=== PATIENT | male | born 1975 | race Caucasian/White ===

== ENCOUNTER 2016-11-28 09:34 | Outpatient (CLI) ==
--- NOTE | 2016-11-28 10:18 | MAMMO ---
EXAM: Digital bilateral diagnostic mammogram HISTORY: Minimal nodularity posterior to the left nipple in a male on multiple medications COMPARISON: None FINDINGS: Two views of both breasts were performed with nipple markers. There is minimal irregular asymmetric soft tissue density posterior to the left nipple. No abnormal calcification or definiti ve nodule is identified. There is minimal soft tissue posterior to the right nipple. IMPRESSION: Mild asymmetric parenchymal density posterior to the left nipple suggestive of gynecoma stia. RECOMMENDATION: No follow-up is recommended, but if symptoms persist, density increases in size or clinical follow-u p is indicated, repeat/follow-up evaluation may be obtained. BIRADS category II: Benign findings
== END 2016-11-28 09:35 | disposition home or self-care (01) ==
LOC: RAD 09:34
PROVIDERS: ATTEND Surgery Surgical Oncology
DX: N64.4 Mastodynia (principal)

== ENCOUNTER 2017-02-09 11:52 | Outpatient (CLI) ==
[2017-02-09 12:07] LABS: BASOPHILS # (AUTO) 0.1 K/uL (0-0.2); BASOPHILS % (AUTO) 0.7 % (0.0-3.0); EOSINOPHILS # (AUTO) 0.3 K/ul (0.0-0.7); HEMATOCRIT 46.4 % (42.0-52.0); HEMOGLOBIN 15.3 g/dl (14.0-18.0); IMMATURE GRANULOCYTE % (AUTO) 1.3 % (0.0-5.0); LYMPHOCYTES # (AUTO) 1.5 K/uL (0.60-3.4); LYMPHOCYTES % (AUTO) 14.5 (10.0-50.0); MEAN CORPUSCULAR HEMOGLOBIN 27.3 pg (27.0-31.0); MEAN CORPUSCULAR VOLUME 82.7 fl (80.0-94.0); MONOCYTES # (AUTO) 0.5 K/uL (0.4-2.0); MONOCYTES % (AUTO) 4.9 (0-10); NEUTROPHILS # (AUTO) 7.8 K/ul (2.0-6.9); NEUTROPHILS % (AUTO) 75.6; PLATELET COUNT 194 10^3/uL (140-440); RED BLOOD COUNT 5.61 10^6/ul (4.70-6.10); WHITE BLOOD COUNT 10.32 K/ul (4.2-10.2)
[2017-02-09 12:33] LABS: ALBUMIN 3.7 g/dL (3.4-5.0); ALBUMIN/GLOBULIN RATIO 1.03; ANION GAP 12.7; BILIRUBIN,TOTAL 0.3 mg/dL (0.00-1.20); BUN/CREATININE RATIO 14.44; CALCIUM 9.3 mg/dL (8.2-10.2); CREATININE 0.9 mg/dL (0.60-1.10); POTASSIUM 3.7 mmol/L (3.5-5.1); TOTAL PROTEIN 7.3 g/dL (6.4-8.2)
== END 2017-02-09 11:53 | disposition home or self-care (01) ==
LOC: LAB 11:52
PROVIDERS: ATTEND Internal Medicine
DX: R00.1 Bradycardia, unspecified (principal)
CPT/HCPCS: 36415; 80053; 85025; 93005; 93010

== ENCOUNTER 2017-02-25 14:00 | Outpatient (RCR) ==
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
--- NOTE | 2017-02-23 16:26 | RS.OTDNOTE ---
Subjective Date of Note: 02/23/17 Visit #: 2 Date of Evaluation: 02/18/17 Payer Source: MEDICARE Date of Onset/Injury/Change in Status: 10/20/16 Surgery Performed?: No Treatment Diagnosis: Left elbow tendonitis Treatment Side (optional): Left *Precautions: Pain pushing himself up, gripping, reaching. Prior Level of Function.....Patient was independent with: ADL's, Self Care, Work /Vocation, Caregiving, Ambulation/Mobility, Community Integration/Access History of Condition/Mechanism of Injury: Patient reports he started having pain in October of this year and it slowly has progressed. Patient is in a wheelchair and has been staying in the bed due to the sore on his coccyx area. Now his LUE elbow is having increased pain. Current Complaints/Gains: Pt states he did not tolerate the ice massage well and had increased c/o pain following Pain Assessment - Pain Description Pain Description: Burning, Tightness, Sharp, Aching Pain Location: Left elbow. hands are numb. Pain Description: sore, tender, burn, tightness Modalities - Treatment Modality: Ultrasound Parameters/Method Applied: 1.5w/cm2 x 10 mins Treatment Area: lateral epicondyle Patient Position: Sitting - Hot Pack/Cryotherapy Treatment: Cryotherapy (CP applied x 10 mins following tx) Interventions - Exercise/Activities Exercise/Activities/Manual Therapy: Manual therapy/trigger point along with ed on self stretching of elbow/wrist into flexion/extension. 2# hand weight utilized along with medium strength hand gripper. - Charges Total Direct Minutes: 35 Total Treatment Time: 50 Procedures billed for this date of service:: [facility] CP Assessment Patient Education: Education of diagnosis, Body/Joint mechanics, Home Exercise Program, Home Safety, Activity Modification, Education of Plan of Care Patient demonstrates compliance with HEP?: Yes Short Term Goals Goal #1: Pt to decrease his LUE elbow pain to 0-2 pain. Goal to be met by: 03/04/17 Progress towards goal: Progressing Goal #2: Pt to be independent with Home exercise program Goal to be met by: 03/04/17 Progress towards goal: Progressing Goal #3: Pt to increase strength of LUE director financial analysis to 73#. Goal to be met by: 03/11/17 Progress towards goal: Progressing Goal #4: Pt to increase strength of LUE to 4+/5 Goal to be met by: 03/11/17 Progress towards goal: Progressing Senior Care Goals Goal #1: Patient's pain to decrease to 0/10. Goal to be met by: 03/18/17 Progress towards goal: Progressing Goal #2: Pt to be independent with Home Exercise program. Goal to be met by: 03/18/17 Progress towards goal: Progressing Goal #3: Pt to increase LUE mass director financial analysis to 80# Goal to be met by: 04/01/17 Progress towards goal: Progressing Goal #4: Pt to increase strength of LUE to 5/5. Goal to be met by: 04/01/17 Progress towards goal: Progressing Plan PLAN OF CARE EXPIRES ON:: 04/01/17 ORDER # VISITS AND/OR THROUGH DATE: April 01, 2017 PLAN: Progress Exercises Frequency: 3 X week Duration: 4 weeks
--- NOTE | 2017-02-24 15:01 | RS.OTDNOTE ---
Subjective Date of Note: 02/24/17 Visit #: 3 Date of Evaluation: 02/18/17 Payer Source: MEDICARE Date of Onset/Injury/Change in Status: 10/20/16 Surgery Performed?: No Treatment Diagnosis: Left elbow tendonitis Treatment Side (optional): Left *Precautions: Pain pushing himself up, gripping, reaching. Prior Level of Function.....Patient was independent with: ADL's, Self Care, Work /Vocation, Caregiving, Ambulation/Mobility, Community Integration/Access History of Condition/Mechanism of Injury: Patient reports he started having pain in October of this year and it slowly has progressed. Patient is in a wheelchair and has been staying in the bed due to the sore on his coccyx area. Now his LUE elbow is having increased pain. Current Complaints/Gains: Pt states he did apply ice pack a second time yesterday for approx 20 mins. States no change in pain. States he has tried UE /elbow protectors before but does not have one now, ussan elbow protector given to pt with instructions for use. Pain Assessment - Pain Description Pain Description: Burning, Tightness, Sharp, Aching Pain Location: Left elbow. hands are numb. Pain Description: sore, tender, burn, tightness Current Pain Intensity: 3-4 Worst Pain Intensity: 6-7 Modalities - Treatment Modality: Ultrasound Parameters/Method Applied: .04w/cm2 x 10 mins, pulsed Treatment Area: elbow Patient Position: Sitting - Hot Pack/Cryotherapy Treatment: Cryotherapy (x 10 mins) Interventions - Exercise/Activities Exercise/Activities/Manual Therapy: Manual therapy/trigger point along with ed on self stretching of elbow/wrist into flexion/extension. 2# hand weight utilized along with medium strength hand gripper. Pt also performed and ed on ISO el ex's. - Charges Total Direct Minutes: 45 Total Treatment Time: 55 Procedures billed for this date of service:: EX MT CP Assessment Patient Education: Education of diagnosis, Body/Joint mechanics, Home Exercise Program, Home Safety, Activity Modification, Education of Plan of Care Patient demonstrates compliance with HEP?: Yes Short Term Goals Goal #1: Pt to decrease his LUE elbow pain to 0-2 pain. Goal to be met by: 03/04/17 Progress towards goal: Progressing Goal #2: Pt to be independent with Home exercise program Goal to be met by: 03/04/17 Progress towards goal: Progressing Goal #3: Pt to increase strength of LUE service parts coordinator to 73#. Goal to be met by: 03/11/17 Progress towards goal: Progressing Goal #4: Pt to increase strength of LUE to 4+/5 Goal to be met by: 03/11/17 Progress towards goal: Progressing [employer] Goals Goal #1: Patient's pain to decrease to 0/10. Goal to be met by: 03/18/17 Progress towards goal: Progressing Goal #2: Pt to be independent with Home Exercise program. Goal to be met by: 03/18/17 Progress towards goal: Progressing Goal #3: Pt to increase LUE mass service parts coordinator to 80# Goal to be met by: 04/01/17 Progress towards goal: Progressing Goal #4: Pt to increase strength of LUE to 5/5. Goal to be met by: 04/01/17 Progress towards goal: Progressing Plan PLAN OF CARE EXPIRES ON:: 04/01/17 ORDER # VISITS AND/OR THROUGH DATE: April 01, 2017 PLAN: Continue Plan of Care Frequency: 3 X week Duration: 4 weeks
--- NOTE | 2017-02-25 16:32 | RS.OTDNOTE ---
Subjective Date of Note: 02/25/17 Visit #: 4 Date of Evaluation: 02/18/17 Payer Source: MEDICARE Date of Onset/Injury/Change in Status: 10/20/16 Surgery Performed?: No Treatment Diagnosis: Left elbow tendonitis Treatment Side (optional): Left *Precautions: Pain pushing himself up, gripping, reaching. Prior Level of Function.....Patient was independent with: ADL's, Self Care, Work /Vocation, Caregiving, Ambulation/Mobility, Community Integration/Access History of Condition/Mechanism of Injury: Patient reports he started having pain in October of this year and it slowly has progressed. Patient is in a wheelchair and has been staying in the bed due to the sore on his coccyx area. Now his LUE elbow is having increased pain. Current Complaints/Gains: Pt states he can stand and has in the past taken steps with his B LE braces on. Pain Assessment - Pain Description Pain Description: Burning, Tightness, Sharp, Aching Pain Location: Left elbow. hands are numb. Pain Description: sore, tender, burn, tightness Modalities - Treatment Modality: Ultrasound Parameters/Method Applied: .04w/cm2 x 10 mins Patient Position: Sitting Interventions - Exercise/Activities Exercise/Activities/Manual Therapy: Manual therapy/trigger point along with ed on self stretching of elbow/wrist into flexion/extension. 5# hand weight utilized along with medium strength hand gripper and 5# abdoulaye bar/green t-band TE's, 15/2. Restor x 5 mins. - Charges Total Direct Minutes: 50 Total Treatment Time: 50 Procedures billed for this date of service:: US EX2 Assessment Patient Education: Education of diagnosis, Body/Joint mechanics, Home Exercise Program, Home Safety, Activity Modification, Education of Plan of Care Patient demonstrates compliance with HEP?: Yes Short Term Goals Goal #1: Pt to decrease his LUE elbow pain to 0-2 pain. Goal to be met by: 03/04/17 Progress towards goal: Progressing Goal #2: Pt to be independent with Home exercise program Goal to be met by: 03/04/17 Progress towards goal: Progressing Goal #3: Pt to increase strength of LUE carbon printer to 73#. 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 Goal to be met by: 03/18/17 Progress towards goal: Progressing Goal #2: Pt to be independent with Home Exercise program. Goal to be met by: 03/18/17 Progress towards goal: Progressing Goal #3: Pt to increase LUE mass carbon printer to 80# Goal to be met by: 04/01/17 Progress towards goal: Progressing Goal #4: Pt to increase strength of LUE to 5/5. Goal to be met by: 04/01/17 Progress towards goal: Progressing Plan PLAN OF CARE EXPIRES ON:: 04/01/17 ORDER # VISITS AND/OR THROUGH DATE: April 01, 2017 PLAN: Progress Exercises Frequency: 3 X week Duration: 4 weeks
--- NOTE | 2017-04-13 15:24 | RS.OTQKDC ---
OT Discharge Date of Discharge: 02/25/17 Number of Visits: 4 Reason for Discharge: Pt receiving Home health services secondary to open sores. Will return to Outpatient OT following Home health services. G Codes: Carry, moving, and handling Goal CH, discharge CK
== END 2017-03-18 ==
PROVIDERS: ATTEND Internal Medicine
DX: M77.8 Other enthesopathies, not elsewhere classified (principal)

== ENCOUNTER 2018-04-21 13:27 | Outpatient (CLI) | payer OTHER | END 2018-04-21 13:28 | disposition home or self-care (01) | LOC: NONPT 13:27 | PROVIDERS: ATTEND Internal Medicine Infectious Disease | DX: T81.4XXA Infection following a procedure, initial encounter (principal) | CPT/HCPCS: 80053; 85027; 85651; 86140 ==

== ENCOUNTER 2018-05-03 15:09 | Outpatient (CLI) | END 2018-05-03 15:10 | disposition home or self-care (01) | LOC: NONPT 15:09 | PROVIDERS: ATTEND Internal Medicine Infectious Disease | DX: T81.4XXA Infection following a procedure, initial encounter (principal) | CPT/HCPCS: 80053; 85027; 85651; 86140 ==

== ENCOUNTER 2018-05-18 08:52 | Outpatient (CLI) ==
--- NOTE | 2018-05-18 12:57 | MRI ---
EXAM: MRI of the pelvis without then with intravenous contrast COMPARISON: MRI of the pelvis 04/14/2016. Bone scan 06/25/2016. HISTORY: Left buttock/hip infection. Osteomyelitis. TECHNIQUE: Multiplanar MR images of the pelvis/bilateral hips were acquired using a 1.2 Татьяна magnet before and after intravenous administration of a Gadolinium based contrast agent. Several sequences are mildly limited by patient motion artifact. FINDINGS: No recent radiographs the pelvis/hips are available for comparison and radiographic correl ation is recommended. There is a deep decubitus ulcer inferiorly in the left gluteal region with gas extending to the deep soft tissues at the level of the ischial tuberosity remnant. Subcutaneous edema enhancement adjacent region related to cellulitis with enhancing inflammatory phlegmon/granulation tissue along the deep soft tissue tract extending to the level of the ischial tuberosity. 2.7 x 0.7 cm T2 hyperintense col lection within the soft tissues immediately overlying the ischial tuberosity with adjacent gas sugges ting a small abscess. There is loss of bone at the level of the left ischial tuberosity likely in pa rt related to previous surgery at that site though with marrow edema/enhancement. Cortical irregular ity involving the ischial tuberosity remnant consistent with ongoing/acute osteomyelitis. Marrow precious ma enhance extend through the posterior portion of the left acetabulum. Adjacent myositis. There is h eterogeneous signal involving the bone marrow suggesting nonspecific red marrow reconversion/hyperpla nikki. Marked osteoarthrosis involving hips bilaterally. Moderate right hip and small left hip effusi ons with synovial enhancement more pronounced on the right. No evidence of acute osteomyelitis at th e level of the right hip. Degenerative spurring at the sacroiliac joints without evidence of active sacroiliitis or ankylosis. Trace left-sided greater trochanteric bursitis. Discontinuity of the left common hamstring tendon at its ischial tuberosity attachment as previously noted. Tendinosis and chronic tear of the right common hamstring tendon. Muscle atrophy. Degenerat javon disc and joint disease involving the lower lumbar spine. There is a suprapubic catheter in place with gas and fluid within the urinary bladder. Incidental no te of seminal vesicles cysts. There are sub-centimeter inguinal and external iliac chain lymph nodes which are nonspecific and may be reactive in nature. 1.0 x 0.7 x 0.6 cm ovoid T2 hyperintense/T1 hy pointense lesion along the free margin of the left piriformis muscle, best seen on image 16 of the ax ial T1-weighted images which may represent a prominent lymph node. IMPRESSION: 1. Deep soft tissue ulcer inferiorly in the left gluteal region with soft tissue gas extending to th e level of the underlying ischial tuberosity remnant. Underlying inflammatory phlegmon/granulation t issue and small abscess. There is evidence of ongoing osteomyelitis at the level of the left ischial tuberosity remnant as described. 2. Marked degenerative changes of the hips bilaterally. Moderate right hip and small left hip effus ions with more pronounced synovitis on the right. This is nonspecific and joint aspiration could be considered if there is specific clinical concern for a septic joint at that level. No evidence of re active marrow edema or acute osteomyelitis involving the right hip. 3. Degenerative changes of the sacroiliac joints and lower lumbar spine. Marrow heterogeneity sugge sting nonspecific red marrow reconversion/hyperplasia. 4. Discontinuity of the hamstring tendons as described. 5. Trace left-sided greater trochanteric bursitis. 6. Sub centimeter mildly enlarged lymph nodes as described which are nonspecific and may be reactive in nature. 7. Suprapubic catheter.
== END 2018-05-18 08:53 | disposition home or self-care (01) ==
LOC: RAD 08:52
PROVIDERS: ATTEND Internal Medicine Infectious Disease
DX: M86.28 Subacute osteomyelitis, other site (principal)

== ENCOUNTER 2018-06-06 05:37 | Inpatient (IN) | payer OTHER ==
[2018-06-06] MEDS ORDERED: TORADOL IVP STA ×2 (06:01→13:39)
[2018-06-06] MEDS ORDERED: LEVAQUIN 500 MG in PREMIX 100 ML D5W 1 BAG IV STA (06:24)
[2018-06-06] MEDS ORDERED: DILAUDID 0.5 MG/0.5 ML SYRINGE IM STA (06:24)
[2018-06-06] MEDS ORDERED: DILAUDID 0.5 MG/0.5 ML SYRINGE IVP STA (06:27)
[2018-06-06] MEDS ORDERED: SODIUM CHLORIDE 1,000 ML IV STA (06:31)
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
[2018-06-06] MEDS ORDERED: TORADOL ONE (06:32)
[2018-06-06] MEDS ORDERED: LEVAQUIN 100 ML IV ONE (06:33)
[2018-06-06] MEDS ORDERED: ZOFRAN 4 MG/2 ML IVP STA (06:34)
[2018-06-06] MEDS ORDERED: ZOSYN 4.5 GM 4.5 GM in SODIUM CHLORIDE 100 ML IV STA (07:06)
[2018-06-06] MEDS ORDERED: SOLU-MEDROL 125 MG IVP STA (07:07)
--- NOTE | 2018-06-06 08:05 | CT ---
Exam: CT of the abdomen and pelvis without contrast History: Fever with right flank pain Technique: [address] of the abdomen and pelvis without intravascular contrast FINDINGS: Prior cholecystectomy. No significant liver abnormality. The adrenals, pancreas and spleen are unremarkable. The stomach and hiatus are unremarkable.Kidneys and proximal collecting system are unremarkable. The appendix is not seen. Atherosclerotic calcification of the aorta without aneurysm . Suprapubic catheter placed. Nondistended urinary bladder. Perivesicular perivesicular inflammation is questionable. Normal pelvic colonic loops with moderate stool retention. No acute findings of th e skeleton. Impression: 1. Perivesicular inflammation is questionable. Correlate for evidence of cystitis. 2. No bowel or urinary obstruction 3. Suprapubic catheter in place
[2018-06-06 09:43] VITALS: BMI 19.1
--- NOTE | 2018-06-06 12:41 | DI ---
EXAM: Chest, one-view HISTORY: Suspected urosepsis COMPARISON: 02/27/2016 TECHNIQUE: Single view of the chest was performed FINDINGS: The lungs are clear. There is no pleural effusion or pneumothorax. The heart is normal i n size. The mediastinal contour is normal. There are no acute abnormalities of the bones. Cervical and thoracic spinal fusion hardware. IMPRESSION: No acute cardiopulmonary process.
[2018-06-06] MEDS ORDERED: DULCOLAX RC PRN (16:40)
[2018-06-06] MEDS ORDERED: IBUPROFEN 600 MG PO PRN (16:40)
[2018-06-06] MEDS ORDERED: BACLOFEN ONE ×2 (16:44→21:38)
[2018-06-06] MEDS: DEXTROSE 5%-1/2NS IV SOLUTION 1,000 ML IV SCH (16:51)
[2018-06-06] MEDS: ZOSYN 4.5 GM 4.5 GM in SODIUM CHLORIDE 100 ML IV SCH (17:00)
[2018-06-06] MEDS: NON-FORMULARY MEDICATION (Baclofen [Baclofen] 20 MG) PO SCH ×2 (17:46→21:43)
[2018-06-06] MEDS ORDERED: LUBIPROSTONE 24 MCG PO SCH (21:00)
[2018-06-06] MEDS: TORADOL IVP SCH (21:43)
[2018-06-06] MEDS ORDERED: TYLENOL PO PRN (23:21)
[2018-06-07] MEDS: ZOSYN 4.5 GM 4.5 GM in SODIUM CHLORIDE 100 ML IV SCH ×4 (00:07→17:15)
[2018-06-07] MEDS: TORADOL IVP SCH ×3 (05:24→20:57)
[2018-06-07] MEDS: DEXTROSE 5%-1/2NS IV SOLUTION 1,000 ML IV SCH ×2 (05:24→20:29)
[2018-06-07] MEDS ORDERED: MOTRIN PO PRN (07:06)
[2018-06-07] MEDS ORDERED: DILAUDID 2 MG/ML SYRINGE IVP PRN (08:46)
[2018-06-07] MEDS ORDERED: NON-FORMULARY MEDICATION (Ascorbic Acid [Vitamin C] 1,000 MG) PO SCH (09:00)
[2018-06-07] MEDS ORDERED: DILAUDID 2 MG/ML SDV ONE (10:07)
[2018-06-07] MEDS: PROTONIX PO SCH (10:15)
[2018-06-07] MEDS: AMITIZA PO SCH ×2 (10:15→20:27)
[2018-06-07] MEDS: MACRODANTIN PO SCH (10:16)
[2018-06-07] MEDS: BACLOFEN PO SCH ×4 (10:16→20:28)
[2018-06-07] MEDS: VITAMIN C PO SCH (10:16)
--- NOTE | 2018-06-07 10:55 | PCM.PROG ---
Attending Provider: [facility]ENDING PROVIDER[facility] is seen with Tika Presley, Nurse Practitioner. DATE OF SERVICE: 06/07/18 SUBJECTIVE: This 43 year old WHITE/ M was hospitalized 06/06/18. The patient is lying in bed resting comfortably. He had pain through the night. He states Hydrocodone and Oxydodone are not helping. He uses medical marijuana at home. He has Stage 3 decubitus that has been present for over 6 years due to paraplegic status. REVIEW OF SYSTEMS: CONSTITUTIONAL: Weakness. No night sweats. No malaise, lethargy. No fever or chills. HEENT: Eyes: No visual changes. No eye pain. No eye discharge. ENT: No runny nose. No epistaxis. No sinus pain. No odynophagia. No congestion. RESPIRATORY: No cough, no congestion. No hemoptysis. No shortness of breath. CARDIOVASCULAR: No angina symptoms. No CHF symptoms. No atypical chest pain for CAD. No palpitations. No orthopnea.. GASTROINTESTINAL: No abdominal pain. No nausea or vomiting. No diarrhea or constipation. No hematemesis. No hematochezia. GENITOURINARY: Bladder pain. No urgency. No frequency. No dysuria. No hematuria. No obstructive symptoms. No discharge. No significant abnormal bleeding. MUSCULOSKELETAL: Back pain, neck pain. NEUROLOGICAL: Awake, alert, oriented to time, place and person. No headache. No neck pain. No syncope. No seizures. No dizziness. PSYCHIATRIC: Not anxious. No depression. No suicidal thoughts. No homicidal thoughts. SKIN: No rash. No lesions. No wounds. ENDOCRINE: No unexplained weight loss. No weight gain. HEMATOLOGIC/LYMPHATIC: No anemia. No purpura. No petechiae. No prolonged or excessive bleeding. No palpable lymph nodes. PHYSICAL EXAMINATION: GENERAL: The patient is awake, alert and oriented, lying/sitting in bed in no distress. VITAL SIGNS: Temperature 97.7 F, Pulse 64, Respiratory Rate 18, BP 94/50, Pulse Ox 99% HEENT: Head normocephalic, atraumatic. Eyes: Extraocular muscles are intact. Pupils are equal, round and reactive to light and accommodation. Ears: No lesions. Nose appeared normal. Throat: No exudate or erythema. NECK: Supple. No JVD, no carotid bruit. No lymphadenopathy or thyromegaly. LUNGS: Clear to auscultation. Percussion note normal. Chest symmetrical. HEART: S1, S2, no S3. No murmurs. No cyanosis or clubbing. No ascites. Pulses: Dorsalis pedis and posterior tibial pulses +1 to +2 both sides. ABDOMEN: Soft. Non-tender. Bowel sounds active. No CVA tenderness. No mass felt. EXTREMITIES: Paraplegia lower extremities. No edema. Full range of motion of all extremities, equal. NEUROLOGIC: No focal deficit. Cranial nerves II through XII are grossly intact. No headache, no double vision or headache. SKIN: Not dry. Intact. Turgor-normal. LYMPHATIC: No palpable lymph nodes/no lymphedema. MUSCULOSKELETAL: Normal joints with no swelling. Muscle tone is normal. LAB REVIEW: 06/06/18 06:30 06/06/18 06:30 ASSESSMENT: 1. Acute pyelonephritis/cystitis 2. Paraplegia wheelchair bound 3. Stage 3 decubitus on coccyx 4. Chronic back and neck pain 5. History of recurrent UTI PLAN: 1. Dr. Lira consult for decubitus 2. Dilaudid 2 mg q.4hr p.r.n. 3. Decrease IV fluids to 75 mL/hr Plan and coordination of the patient's care discussed in the presence of Email Production Specialist and nurse. CONDITION: Stable SCRIBED BY: Mamie VELEZ scribed while in presence of service performed by Dr. Rizzo/Tika Presley APRN on 06/07/18 ([id number])
[2018-06-07] MEDS: DILAUDID 2 MG/ML SDV IVP PRN (18:24)
[2018-06-08] MEDS: ZOSYN 4.5 GM 4.5 GM in SODIUM CHLORIDE 100 ML IV SCH ×2 (00:15→06:44)
[2018-06-08] MEDS: DILAUDID 2 MG/ML SDV IVP PRN ×3 (00:37→21:06)
[2018-06-08] MEDS: PROTONIX PO SCH (06:04)
[2018-06-08] MEDS: TORADOL IVP SCH ×3 (06:09→20:36)
[2018-06-08] MEDS: MACRODANTIN PO SCH (08:47)
[2018-06-08] MEDS: VITAMIN C PO SCH (08:47)
[2018-06-08] MEDS: AMITIZA PO SCH ×2 (08:47→21:20)
[2018-06-08] MEDS: BACLOFEN PO SCH ×3 (08:47→21:20)
[2018-06-08] MEDS: PRIMAXIN 500 MG in SODIUM CHLORIDE 100 ML IV SCH ×3 (08:48→17:00)
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
[2018-06-08] MEDS: DEXTROSE 5%-1/2NS IV SOLUTION 1,000 ML IV SCH (12:44)
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
--- NOTE | 2018-06-08 14:34 | PN ---
DATE OF SERVICE: 06/07/18 SUBJECTIVE: The patient was seen and examined with Nurse Practitioner. 43 year old white male hospitalized with acute pyelonephritis. There is no right pain. He has generalized pain from his osteoarthritis. His urine is practically clear. He is afebrile. WBC is 17,000. He is on IV antibiotics and condition is improving. The patient has stage three decubitus for several years. He was seen and examined and care is being given. His prognosis for healing is poor because of his malnourishment and inability to walk. He says that it very difficulty for him to turn on either side on his own so he can't help and isn't going to turn. He is not helping himself and he doesn't take responsibility for decubitus he has. He is trying to find faults with pharmacy customer care specialist. TIME SPENT: More than 30 minutes. Plan and coordination of the patient's care discussed in the presence of nurse. TREY
[2018-06-09] MEDS: PRIMAXIN 500 MG in SODIUM CHLORIDE 100 ML IV SCH ×4 (00:38→17:45)
[2018-06-09] MEDS: DILAUDID 2 MG/ML SDV IVP PRN ×4 (01:28→18:48)
[2018-06-09] MEDS: DEXTROSE 5%-1/2NS IV SOLUTION 1,000 ML IV SCH ×2 (05:25→05:26)
[2018-06-09] MEDS: TORADOL IVP SCH ×2 (06:01→14:47)
[2018-06-09] MEDS: PROTONIX PO SCH (06:10)
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
[2018-06-09] MEDS: AMITIZA PO SCH (08:49)
[2018-06-09] MEDS: VITAMIN C PO SCH (08:49)
[2018-06-09] MEDS: MACRODANTIN PO SCH (08:49)
[2018-06-09] MEDS: BACLOFEN PO SCH ×3 (08:50→17:44)
[2018-06-10] MEDS: PRIMAXIN 500 MG in SODIUM CHLORIDE 100 ML IV SCH ×3 (00:08→12:27)
[2018-06-10] MEDS: BACLOFEN PO SCH ×4 (00:23→12:38)
[2018-06-10] MEDS: DILAUDID 2 MG/ML SDV IVP PRN ×2 (00:23→07:31)
[2018-06-10] MEDS: AMITIZA PO SCH ×2 (00:23→08:43)
[2018-06-10] MEDS: TORADOL IVP SCH ×3 (00:24→12:39)
[2018-06-10] MEDS: PROTONIX PO SCH (05:43)
--- NOTE | 2018-06-10 07:48 | PN ---
DATE OF SERVICE: 06/09/18 SUBJECTIVE: The patient was seen and examined with Nurse Practitioner. The patient's condition has steadily improved. He is on IV antibiotics as pseudomonas is not sensitive to any oral antibiotics. He is afebrile. He is feeling better and appetite has improved. Pain is much less and under control with the medications given now. TIME SPENT: More than 30 minutes. Plan and coordination of the patient's care discussed in the presence of nurse. TREY
[2018-06-10] MEDS: VITAMIN C PO SCH (08:44)
[2018-06-10] MEDS: MACRODANTIN PO SCH (08:44)
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
[2018-06-10 10:19] VITALS: BP 99/64; TEMP 97.7
--- NOTE | 2018-06-11 07:38 | PN ---
DATE OF SERVICE: 06/10/18 SUBJECTIVE: The patient was seen and examined with the Nurse Practitioner. The patient is going to be continued on IV antibiotics. He is not sensitive to any PO antibiotics for the pseudomonas require hospitalization and we may have to put him in the swing bed and discussed with Director Data. The patient is going to be discharged to swing bed. The patient is going to be on the swing bed for IV antibiotics for pyelonephritis. His pseudomonas is sensitive to IV antibiotics. TIME SPENT: More than 30 minutes. Plan and coordination of the patient's care discussed in the presence of nurse. TREY
--- NOTE | 2018-06-11 13:06 | DS ---
DATE OF SERVICE: 06/10/18 FINAL DIAGNOSIS: 1. Urinary tract infection 2. Acute pyelonephritis with positive pseudomonas culture requiring IV antibiotics DISCHARGE INSTRUCTIONS: Admit to swing bed. Continue all home medications. CBC and CMP every three days. MEDICATIONS AT DISCHARGE: Protonix 40mg PO daily Amitiza 24mcg PO twice a day Ibuprofen 200mg three times a day PRN Baclofen 20mg PO four times a day Vitamin C 1000 mg PO daily Bisacodyl 10mg RC daily PRN Macrodantin 50mg PO daily Aquacel Ag Foam 4x4 dressing TP daily NEW PRESCRIPTIONS: Dilaudid 2mg IVP Q 6 hours Toradol 30mg IV Q 8 hours DIET INSTRUCTIONS: As tolerated ACTIVITY: As tolerated SMOKING: Smoking cessation DISEASE SPECIFIC EDUCATION: Swing bed Antibiotics HOSPITAL COURSE: 43 year old white male who is paraplegic. He has a permanent indwelling catheter , he is wheelchair bound. He has a decubitus on his coccyx which was present on admission. He presented to the emergency room with low grade fever and chills. CT scan revealed changes associated with acute cystitis and acute pyelonephritis. U/A was significantly abnormal. A urine culture was done after 48 hours and it showed pseudomonas. He had previously been on Levaquin IV 500mg daily which was changed to Imipenem 600mg IV Q 6 hours as this is sensitive only urine culture. No oral antibiotics was sensitive on the urine culture. He is going to require several days of IV antibiotics in order to clear this up. Vitals have remained stable. He has had some significant pain over the course of this hospital stay. The patient reported at home no pain medications work. He had been to Pain Management and at this time he uses medical marijuana which he reports that he uses all day everyday. He states that he is allergic to Morphine. He was initially started on Dilaudid 2mg every 2 hours then was weaned to 2mg every 4 hours and now we are on Dilaudid 2mg every 6 hours. Information has also been given to him providing about smoking cessation. We will discharge him to swing bed for the need for the IV antibiotics. Continue the IV Imipenem every 6 hours. We will discontinue his IV fluids with normal saline. He is on regular diet and is otherwise in stable condition. He will followup with all of his regular doctor Dr. Joe is his general surgeon who is sees at [facility] for his decubitus which is stage 3 on his coccyx which was present on admission. He also has a GI and PCP in [place] which he will continue to follow with. TIME SPENT: More than 60 minutes. TREY
== END 2018-06-10 13:29 | disposition swing bed (61) | DRG 392 ==
LOC: ED 05:37 → MEDSURG A 08:43
PROVIDERS: ADMIT Internal Medicine; ATTEND Internal Medicine
DX: R10.31 Right lower quadrant pain (principal); N10 Acute pyelonephritis; G82.20 Paraplegia, unspecified; M54.9 Dorsalgia, unspecified; F41.9 Anxiety disorder, unspecified; D72.829 Elevated white blood cell count, unspecified; L89.90 Pressure ulcer of unspecified site, unspecified stage; M54.2 Cervicalgia
CPT/HCPCS: 36415; 74176; 80053; 81001; 83605; 84145; 85025; 87040; 87086; 87186; 93005; 93010; 96361; 96365; 96375; 99284

== ENCOUNTER 2018-06-10 13:29 | Inpatient (IN) | payer OTHER ==
[2018-06-10 14:16] VITALS: BMI 18.9
[2018-06-10] MEDS ORDERED: DULCOLAX RC PRN (14:23)
[2018-06-10] MEDS ORDERED: IBUPROFEN 600 MG PO PRN (14:23)
[2018-06-10] MEDS ORDERED: DILAUDID 2 MG/ML SYRINGE IVP PRN (14:25)
[2018-06-10] MEDS ORDERED: DILAUDID 2 MG/ML SDV ONE ×2 (14:38→21:26)
[2018-06-10] MEDS ORDERED: MOTRIN PO PRN (15:04)
[2018-06-10] MEDS ORDERED: NON-FORMULARY MEDICATION (Baclofen [Baclofen] 20 MG) PO SCH (17:00)
[2018-06-10] MEDS: BACLOFEN PO SCH ×2 (17:07→20:27)
[2018-06-10] MEDS: PRIMAXIN 500 MG in SODIUM CHLORIDE 100 ML IV SCH (17:07)
[2018-06-10] MEDS: AMITIZA PO SCH (20:28)
[2018-06-10] MEDS: TORADOL IVP SCH (20:55)
[2018-06-10] MEDS ORDERED: LUBIPROSTONE 24 MCG PO SCH (21:00)
[2018-06-11] MEDS: PRIMAXIN 500 MG in SODIUM CHLORIDE 100 ML IV SCH ×5 (00:14→23:00)
[2018-06-11] MEDS ORDERED: DILAUDID 2 MG/ML SDV ONE (04:22)
[2018-06-11] MEDS: TORADOL IVP SCH ×3 (04:26→21:27)
[2018-06-11] MEDS: PROTONIX PO SCH (05:42)
[2018-06-11] MEDS ORDERED: NON-FORMULARY MEDICATION (Ascorbic Acid [Vitamin C] 1,000 MG) PO SCH (09:00)
[2018-06-11] MEDS: MACRODANTIN PO SCH (10:41)
[2018-06-11] MEDS: BACLOFEN PO SCH ×4 (10:42→21:25)
[2018-06-11] MEDS: VITAMIN C PO SCH (10:42)
[2018-06-11] MEDS: AMITIZA PO SCH ×2 (10:42→21:24)
[2018-06-11] MEDS: DILAUDID 2 MG/ML SDV IVP PRN ×3 (10:43→22:58)
--- NOTE | 2018-06-11 10:56 | PN ---
DATE OF SERVICE: 06/11/18 SUBJECTIVE: The patient was seen and examined with Nurse Practitioner. The patient is in the swing bed. IV antibiotics to be continued for pyelonephritis. Cardiovascular status is stable. His Decubitus is being taken care of. Prognosis for healing the decubitus ulcer is poor because of the patient nutritional status, uncooperative and refuses to turn, Hypoproteinemia, repeated swelling and infection. TIME SPENT: More than 30 minutes. Plan and coordination of the patient's care discussed in the presence of nurse. TREY
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
[2018-06-12] MEDS: PRIMAXIN 500 MG in SODIUM CHLORIDE 100 ML IV SCH ×4 (05:20→23:33)
[2018-06-12] MEDS: TORADOL IVP SCH ×3 (06:06→21:28)
[2018-06-12] MEDS: PROTONIX PO SCH (06:07)
[2018-06-12] MEDS: DILAUDID 2 MG/ML SDV IVP PRN ×3 (06:46→20:20)
[2018-06-12] MEDS: AMITIZA PO SCH ×2 (10:17→21:09)
[2018-06-12] MEDS: VITAMIN C PO SCH (10:18)
[2018-06-12] MEDS: MACRODANTIN PO SCH (10:18)
[2018-06-12] MEDS: BACLOFEN PO SCH ×4 (10:18→21:09)
[2018-06-13] MEDS: DILAUDID 2 MG/ML SDV IVP PRN ×3 (04:47→18:12)
[2018-06-13] MEDS: TORADOL IVP SCH ×3 (05:37→21:00)
[2018-06-13] MEDS: PROTONIX PO SCH (05:45)
[2018-06-13] MEDS: PRIMAXIN 500 MG in SODIUM CHLORIDE 100 ML IV SCH ×3 (05:45→18:11)
[2018-06-13] MEDS: MACRODANTIN PO SCH (09:41)
[2018-06-13] MEDS: AMITIZA PO SCH ×2 (09:41→20:17)
[2018-06-13] MEDS: BACLOFEN PO SCH ×4 (09:42→20:17)
[2018-06-13] MEDS: VITAMIN C PO SCH (09:42)
[2018-06-14] MEDS: PRIMAXIN 500 MG in SODIUM CHLORIDE 100 ML IV SCH ×4 (00:09→17:16)
[2018-06-14] MEDS: DILAUDID 2 MG/ML SDV IVP PRN ×4 (00:09→19:41)
[2018-06-14 05:19] VITALS: TEMP 98
[2018-06-14] MEDS: PROTONIX PO SCH (05:44)
[2018-06-14] MEDS: TORADOL IVP SCH ×3 (06:14→22:31)
[2018-06-14] MEDS: AMITIZA PO SCH ×2 (08:05→22:30)
[2018-06-14] MEDS: MACRODANTIN PO SCH (08:05)
[2018-06-14] MEDS: VITAMIN C PO SCH (08:05)
[2018-06-14] MEDS: BACLOFEN PO SCH ×4 (08:05→22:30)
--- NOTE | 2018-06-14 14:33 | PN ---
DATE OF SERVICE: 06/13/18 SUBJECTIVE: The patient is doing well. He has been on antibiotics for Pseudomonas infection with pyelonephritis. He is afebrile for 5 days. REVIEW OF SYSTEMS: CONSTITUTIONAL: No night sweats. No fatigue, malaise, lethargy. No fever or chills. HEENT: Eyes: No visual changes. No eye pain. No eye discharge. ENT: No runny nose. No epistaxis. No sinus pain. No sore throat. No odynophagia. No congestion. RESPIRATORY: No cough, no congestion. No hemoptysis. No shortness of breath. CARDIOVASCULAR: No angina symptoms. No CHF symptoms. No atypical chest pain for CAD. No palpitations. No orthopnea. GASTROINTESTINAL: No abdominal pain. No nausea or vomiting. No diarrhea or constipation. No hematemesis. No hematochezia. GENITOURINARY: No urgency. No frequency. No dysuria. No hematuria. No obstructive symptoms. No discharge. No pain. No significant abnormal bleeding. MUSCULOSKELETAL: Arthritic pain. NEUROLOGICAL: No headache. No neck pain. No syncope. No seizures. No dizziness. PSYCHIATRIC: Not anxious. No depression. No suicidal thoughts. No homicidal thoughts. SKIN: No rash. No lesions. No wounds. ENDOCRINE: No unexplained weight loss. No weight gain. HEMATOLOGIC/LYMPHATIC: No anemia. No purpura. No petechiae. No prolonged or excessive bleeding. No palpable lymph nodes. PHYSICAL EXAMINATION: HEENT: Head normocephalic, atraumatic. Eyes: Extraocular muscles are intact. Pupils are equal, round and reactive to light and accommodation. Ears: No lesions. Nose appeared normal. Throat: No exudate or erythema. NECK: Supple. No JVD, no carotid bruit. No lymphadenopathy or thyromegaly. LUNGS: Clear to auscultation. Percussion note normal. Chest symmetrical. HEART: S1, S2, no S3. No murmurs. No cyanosis or clubbing. No ascites. Pulses: Dorsalis pedis and posterior tibial pulses +1 to +2 both sides. ABDOMEN: Soft. Nontender. Bowel sounds active. No CVA tenderness. No mass felt. EXTREMITIES: He has arthritic pain. No edema. Full range of motion of all extremities, equal. NEUROLOGIC: No focal deficit. Cranial nerves II through XII are grossly intact. No headache, no double vision or headache. SKIN: Not dry. Intact. Turgor - normal. LYMPHATIC: No palpable lymph nodes/no lymphedema. MUSCULOSKELETAL: Normal joints with no swelling. Muscle tone is normal. ASSESSMENT: 1. He has arthritic pain for which he has been given Dilaudid. PLAN: 1. Continue IV antibiotics. 2. Advised to increase p.o. fluids. CONDITION: Stable TIME SPENT: More than 30 minutes. Plan and coordination of the patient's care discussed in the presence of nurse. TREY
[2018-06-14 17:40] VITALS: BP 102/59
[2018-06-15] MEDS: PRIMAXIN 500 MG in SODIUM CHLORIDE 100 ML IV SCH ×2 (01:42→05:41)
[2018-06-15] MEDS: DILAUDID 2 MG/ML SDV IVP PRN ×2 (01:50→07:45)
[2018-06-15] MEDS: TORADOL IVP SCH (05:41)
[2018-06-15] MEDS: PROTONIX PO SCH (05:41)
[2018-06-15] MEDS: VITAMIN C PO SCH (09:22)
[2018-06-15] MEDS: AMITIZA PO SCH (09:23)
[2018-06-15] MEDS: BACLOFEN PO SCH (09:23)
[2018-06-15] MEDS: MACRODANTIN PO SCH (09:23)
--- NOTE | 2018-06-15 13:03 | PCM.PROG ---
Attending Provider: [facility] DATE OF SERVICE: 06/15/18 SUBJECTIVE: This 43 year old WHITE/ M was hospitalized 06/10/18 with acute pyelonephritis. He has had a suprapubic catheter for many years. The patient' s symptoms of UTI and pyelonephritis have resolved. He was put on Imipenem sensitive to Pseudomonas Aerugisnosa in his urine culture sensitive to all antibiotics that are mostly IV or IM. No oral antibiotic could be used. The patient is afebrile. He is eating well. REVIEW OF SYSTEMS: CONSTITUTIONAL: No night sweats. No fatigue, malaise, lethargy. No fever or chills. HEENT: Eyes: No visual changes. No eye pain. No eye discharge. ENT: No runny nose. No epistaxis. No sinus pain. No odynophagia. No congestion. RESPIRATORY: No cough, no congestion. No hemoptysis. No shortness of breath. CARDIOVASCULAR: No angina symptoms. No CHF symptoms. No atypical chest pain for CAD. No palpitations. No orthopnea.. GASTROINTESTINAL: No abdominal pain. No nausea or vomiting. No diarrhea or constipation. No hematemesis. No hematochezia. GENITOURINARY: Suprapubic catheter in place. MUSCULOSKELETAL: No musculoskeletal pain; no joint swelling. NEUROLOGICAL: Awake, alert, oriented to time, place and person. No headache. No neck pain. No syncope. No seizures. No dizziness. PSYCHIATRIC: Not anxious. No depression. No suicidal thoughts. No homicidal thoughts. SKIN: No rash. No lesions. No wounds. ENDOCRINE: No unexplained weight loss. No weight gain. HEMATOLOGIC/LYMPHATIC: No anemia. No purpura. No petechiae. No prolonged or excessive bleeding. No palpable lymph nodes. PHYSICAL EXAMINATION: GENERAL: The patient is awake, alert and oriented, lying in bed in no distress. VITAL SIGNS: Temperature 98 F, Pulse 87, Respiratory Rate 26, BP 102/59, Pulse Ox 96% HEENT: Head normocephalic, atraumatic. Eyes: Extraocular muscles are intact. Pupils are equal, round and reactive to light and accommodation. Ears: No lesions. Nose appeared normal. Throat: No exudate or erythema. NECK: Supple. No JVD, no carotid bruit. No lymphadenopathy or thyromegaly. LUNGS: Clear to auscultation. Percussion note normal. Chest symmetrical. HEART: S1, S2, no S3. No murmurs. No cyanosis or clubbing. No ascites. Pulses: Dorsalis pedis and posterior tibial pulses +1 to +2 both sides. ABDOMEN: Soft. Non-tender. Bowel sounds active. No CVA tenderness. No mass felt. EXTREMITIES: No edema. NEUROLOGIC: No focal deficit. Cranial nerves II through XII are grossly intact. No headache, no double vision or headache. SKIN: Warm and dry. Intact. Turgor-normal. LYMPHATIC: No palpable lymph nodes/no lymphedema. MUSCULOSKELETAL: Normal joints with no swelling. Muscle tone is normal. LAB REVIEW: 06/13/18 07:00 06/13/18 07:00 ASSESSMENT: 1. Suprapubic catheter is still draining cloudy urine likely from colonization or contaminant. The patient is instructed to go to ER if he develops fever or chills. PLAN: 1. The patient will follow with Cole Camarena early next week. 2. Repeat UA. 3. Discharge home. Plan and coordination of the patient's care discussed in the presence of Financial Investigator and nurse. CONDITION: Stable SCRIBED BY: DARREN SMITH Financial Aid Coordinator scribed while in presence of service performed by Dr. [facility]G [facility] on 06/15/18 ([id number])
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
--- NOTE | 2018-06-16 09:33 | PN ---
06/10/18: Level 5 06/11/18: Intermediate 06/12/18: Intermediate 06/13/18: Intermediate 06/14/18: Intermediate 06/15/18: D as in discharge MTDD
== END 2018-06-15 09:40 | disposition home or self-care (01) | DRG 690 ==
LOC: MEDSURG A 13:29
PROVIDERS: ADMIT Internal Medicine; ATTEND Internal Medicine
DX: N30.90 Cystitis, unspecified without hematuria (principal); G82.20 Paraplegia, unspecified; N39.0 Urinary tract infection, site not specified; J98.4 Other disorders of lung; L89.90 Pressure ulcer of unspecified site, unspecified stage; K21.9 Gastro-esophageal reflux disease without esophagitis; R82.71 Bacteriuria; M19.90 Unspecified osteoarthritis, unspecified site; E77.8 Other disorders of glycoprotein metabolism
CPT/HCPCS: 36415; 80053; 85007; 85025; 85027; 97802

== ENCOUNTER 2018-10-21 19:03 | Emergency (ER) ==
[2018-10-21 19:17] VITALS: BP 122/68; TEMP 98.6; BMI 22.5
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
== END 2018-10-21 20:36 | disposition home or self-care (01) ==
LOC: ED 19:03
DX: R82.71 Bacteriuria (principal); Z96.0 Presence of urogenital implants; F17.210 Nicotine dependence, cigarettes, uncomplicated; Z87.440 Personal history of urinary (tract) infections; G82.20 Paraplegia, unspecified
CPT/HCPCS: 36415; 80053; 81001; 83605; 84145; 85025; 87086; 87186; 99283

== ENCOUNTER 2023-04-20 17:15 | Observation (INO) ==
[2023-04-20] MEDS ORDERED: DILAUDID 1 MG/ML SYRINGE IVP ONE (18:14)
[2023-04-20] MEDS ORDERED: SODIUM CHLORIDE 1,000 ML IV STA (18:14)
[2023-04-20] MEDS ORDERED: ZOFRAN 4 MG/2 ML IVP STA (18:14)
[2023-04-20 18:31] LABS: BASOPHILS % (AUTO) 0.3 % (0.0-3.0); EOSINOPHILS # (AUTO) 0.1 K/ul (0.0-0.7); HEMATOCRIT 28.2 % (42.0-52.0); HEMOGLOBIN 9.4 g/dl (14.0-18.0); IMMATURE GRANULOCYTE # (AUTO) 0.5 (0.0-1.0); IMMATURE GRANULOCYTE % (AUTO) 3.8 % (0.0-5.0); LYMPHOCYTES # (AUTO) 1.3 K/uL (0.60-3.4); LYMPHOCYTES % (AUTO) 10.5 (10.0-50.0); MEAN CORPUSCULAR HEMOGLOBIN 23.4 pg (27.0-31.0); MEAN CORPUSCULAR HGB CONC 33.3 (31.8-35.4); MEAN CORPUSCULAR VOLUME 70.3 fl (80.0-94.0); MONOCYTES # (AUTO) 1.1 K/uL (0.4-2.0); MONOCYTES % (AUTO) 8.8 (0-10); NEUTROPHILS # (AUTO) 9.1 K/ul (2.0-6.9); NEUTROPHILS % (AUTO) 75.6 % (42.2-75.2); PLATELET COUNT 354 10^3/uL (140-440); RDW COEFFICIENT OF VARIATION 15.8 % (11.6-14.8); RED BLOOD COUNT 4.01 10^6/ul (4.70-6.10); WHITE BLOOD COUNT 12.05 K/ul (4.2-10.2)
--- NOTE | 2023-04-20 18:31 | DI ---
EXAM: SINGLE, PORTABLE AP VIEW(S) CHEST. HISTORY: Shortness of breath. COMPARISON: 04/03/2021 TECHNIQUE: Single, portable AP view(s) of the chest. FINDINGS: Postoperative changes in the thoracic spine. There are old healed fractures of the left po sterior ribs. Lungs: The lung voulmes are normal.The lungs are clear without consolidation or effusion. There are n o suspicious nodules. There is no pneumothorax. Cardiovascular: The heart size and pulmonary vasculature is normal.. The aorta is unremarkable. Yumiko/Mediastinum: Normal. Osseous structures. Normal for age. IMPRESSION: No acute pulmonary disease.
[2023-04-20 18:41] LABS: ALANINE AMINOTRANSFERASE 28.3 U/L (0-50); ALBUMIN 3.44 g/dL (3.5-5.0); ALKALINE PHOSPHATASE 90.5 U/L (38-126); ASPARTATE AMINO TRANSFERASE 35.6 U/L (17-59); BILIRUBIN,TOTAL 0.58 mg/dL (0.2-1.3); BLOOD UREA NITROGEN 30.8 mg/dL (9-20); CALCIUM 8.21 mg/dL (8.4-10.2); CARBON DIOXIDE 15.6 mmol/L (22-30.0); CHLORIDE 97.9 mmol/L (98-107); CREATININE 1.7 mg/dL (0.60-1.10); GLUCOSE 73.6 mg/dL (74-106); POTASSIUM 3.11 mmol/L (3.5-5.1); SODIUM 127.2 mmol/L (134.5-145); TOTAL PROTEIN 7.12 g/dL (6.3-8.2)
[2023-04-20] MEDS ORDERED: K-DUR PO STA (19:10)
[2023-04-20] MEDS ORDERED: ZOSYN 3.375 GM 3.375 GM in SODIUM CHLORIDE 100ML 100 ML IV ONE (21:02)
[2023-04-20] MEDS ORDERED: TYLENOL PO PRN (21:43)
[2023-04-20] MEDS ORDERED: SODIUM CHLORIDE 1,000 ML IV SCH (22:00)
[2023-04-20 22:05] LABS: BILIRUBIN,URINE Negative (NEGATIVE); CLARITY,URINE Clear (CLEAR); COLOR,URINE Yellow (YELLOW); GLUCOSE, URINE (UA) Negative (NEGATIVE); KETONES,URINE Negative (NEGATIVE); LEUKOCYTE ESTERASE ,URINE Trace (NEGATIVE); NITRITE,URINE Positive (NEGATIVE); PH,URINE 5.5 (5-9); PROTEIN,URINE Negative (NEGATIVE); URINE, BLOOD Trace-intact (NEGATIVE); UROBILINOGEN,URINE 0.2 (0.2)
[2023-04-20 22:07] LABS: SQUAMOUS EPITHELIAL CELL,UR NOT PRESENT (0-5)
[2023-04-20 22:17] LABS: BACTERIA,URINE 1+ (NOT PRESENT)
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
[2023-04-20 23:21] VITALS: BMI 25.4
[2023-04-21] MEDS ORDERED: MOTRIN PO PRN ×2 (00:16→06:44)
[2023-04-21] MEDS ORDERED: ELAVIL PO SCH (00:20)
[2023-04-21] MEDS: BACLOFEN PO SCH ×2 (00:46→08:56)
[2023-04-21] MEDS: AMITIZA PO SCH ×2 (00:46→08:57)
[2023-04-21 05:08] VITALS: BP 102/52; RESP 16; TEMP 97.4
[2023-04-21 07:36] LABS: BASOPHILS % (AUTO) 0.3 % (0.0-3.0); EOSINOPHILS # (AUTO) 0.2 K/ul (0.0-0.7); EOSINOPHILS % (AUTO) 1.5 % (0.0-7.0); HEMATOCRIT 26.4 % (42.0-52.0); HEMOGLOBIN 8.5 g/dl (14.0-18.0); IMMATURE GRANULOCYTE # (AUTO) 0.4 (0.0-1.0); IMMATURE GRANULOCYTE % (AUTO) 4.2 % (0.0-5.0); LYMPHOCYTES % (AUTO) 9.5 (10.0-50.0); MEAN CORPUSCULAR HEMOGLOBIN 23.3 pg (27.0-31.0); MEAN CORPUSCULAR HGB CONC 32.2 (31.8-35.4); MEAN CORPUSCULAR VOLUME 72.3 fl (80.0-94.0); MONOCYTES # (AUTO) 0.7 K/uL (0.4-2.0); MONOCYTES % (AUTO) 7.3 (0-10); NEUTROPHILS # (AUTO) 7.8 K/ul (2.0-6.9); NEUTROPHILS % (AUTO) 77.2 % (42.2-75.2); PLATELET COUNT 383 10^3/uL (140-440); RDW COEFFICIENT OF VARIATION 15.9 % (11.6-14.8); RED BLOOD COUNT 3.65 10^6/ul (4.70-6.10); WHITE BLOOD COUNT 10.12 K/ul (4.2-10.2)
[2023-04-21 07:49] LABS: ALBUMIN 3.03 g/dL (3.5-5.0); ALKALINE PHOSPHATASE 76.5 U/L (38-126); ASPARTATE AMINO TRANSFERASE 29.6 U/L (17-59); BILIRUBIN,TOTAL 0.34 mg/dL (0.2-1.3); BLOOD UREA NITROGEN 29.6 mg/dL (9-20); CALCIUM 8.36 mg/dL (8.4-10.2); CARBON DIOXIDE 14.4 mmol/L (22-30.0); CHLORIDE 109.4 mmol/L (98-107); CREATININE 1.53 mg/dL (0.60-1.10); GLUCOSE 73.4 mg/dL (74-106); POTASSIUM 3.13 mmol/L (3.5-5.1); SODIUM 136.2 mmol/L (134.5-145); TOTAL PROTEIN 6.42 g/dL (6.3-8.2)
--- NOTE | 2023-04-21 08:50 | PCM.SS ---
Provider [facility] Date Admission Date: 04/20/23 Discharge Date Discharge Date: 04/21/23 Chief Complaint Reason For Visit: HEADACHE History of Present Illness History of Present Illness: Admitted 04/20/23 22:23, this 48 year old /WHITE/M presented to the ER with complaints of weakness and headache. Patient states that over the last week or so he has not been feeling well. States he has been eating and drinking normally. No fever, chills, body aches, N/V/D, abd pain, chest pain, sob. He was seen in the ER on 04/12 and had TIMOTHY but left AMA. While in ER, he received 1L of NS and was found to have a sodium of 127. He is a paraplegic and has a chronic suprapubic catheter and ileostomy that is followed at [place]. [facility] Medical History Anxiety F41.9 - Anxiety disorder, unspecified (ICD-10) Chronic back pain M54.9 - Dorsalgia, unspecified (ICD-10) Chronic pain G89.29 - Other chronic pain (ICD-10) Depression F32.9 - Major depressive disorder, single episode, unspecified (ICD-10) Frequent UTI N39.0 - Urinary tract infection, site not specified (ICD-10) Paraplegia G82.20 - Paraplegia, unspecified (ICD-10) Surgical History History of creation of ostomy Z93.9 - Artificial opening status, unspecified (ICD-10) History of musculoskeletal system surgery Z98.890 - Other specified postprocedural states (ICD-10) Status post appendectomy Z90.49 - Acquired absence of other specified parts of digestive tract (ICD- 10) Status post cholecystectomy Z90.49 - Acquired absence of other specified parts of digestive tract (ICD- 10) Family History Mother No problems noted. FATHER Cardiac disease Other COPD (chronic obstructive pulmonary disease) Social History Smoking and tobacco status: Former smoker Medications Mecications: Medications at Discharge (Home Meds & RX) lubiprostone 24 mcg capsule (Amitiza) 24 mcg PO BID 08/03/14 pantoprazole 40 mg tablet,delayed release (Protonix) 40 mg PO DAILY 08/03/14 baclofen 20 mg tablet 40 mg PO TID #120 tab-caps 12/18/14 ibuprofen 200 mg tablet 600 mg PO BID PRN PAIN /FEVER 12/18/14 ascorbic acid (vitamin C) 1,000 mg tablet (Vitamin C) 1,000 mg PO BID 06/06/18 silver 1.2 %-foam bandage 4" X 4" (Aquacel AG Foam) 06/06/18 amitriptyline 25 mg tablet 50 mg PO BEDTIME 10/21/18 sennosides 8.6 mg capsule (senna) 8.6 mg PO DAILY 04/01/22 Allergies Allergies Allergy/AdvReac Type Severity Reaction Status Date / Time morphine Allergy Severe rash Verified 04/20/23 17:47 Sulfa (Sulfonamide Allergy Rash Verified 04/20/23 17:47 Antibiotics) linaclotide [From Linzess] AdvReac Rash Verified 04/20/23 17:47 Review of Systems Constitutional: Reports Weakness Head: Reports Normocephalic Eyes: Reports No symptoms Ears: Reports No symptoms Nose: Reports No symptoms Mouth: Reports No symptoms Throat: Reports No symptoms Cardiovascular: Reports No symptoms Respiratory: Reports No symptoms Gastrointestinal: Reports No symptoms Genitourinary: Reports No Symptoms Musculoskeletal: Reports No symptoms Dermatologic: Reports Rashes Endocrine: Reports No symptoms Hematology: Reports No symptoms Immunology: Reports No symptoms Neurological: Reports No symptoms Psychiatric: Reports No symptoms Physical Examination Appearance: Positive No Apparent Distress, Alert and Oriented x3 and Ill- Appearing Head: Positive Normocephalic Eyes: Positive MARGI ENT: Positive Ears Normal and Nares Normal Neck: Positive Supple, Non-Tender, No Masses, No Lynphadenopathy and Trachea Midline Heart: Positive RRR and No Murmurs Respiratory: Positive Airway patent, Breath Sounds Clear, Bilaterally, Breath Sounds Equal and Respirations Nonlabored GI/: Positive Soft, Nontender, Bowel sounds normal, No Distention and Other (ileostomy) Extremities: Positive Pedal Pulses Palpable Bilaterally and Other Neurological: Positive Recent Memory Intact, Remote Memory Intact, Sensation Intact, Motor Intact (paraplegia to BLE), Alert and Oriented Psychiatric: Positive Normal Judgement, Normal Insight, Affect Appropriate and Mood Appropriate Vital Signs (Last 4 Hours) Vital Signs Last 4 Hours: Vital Signs: Last 4 Hours 04/21/23 05:07 04/21/23 07:00 Temperature 97.4 F L Temperature Source Temporal Artery Scan Pulse Rate 76 Respiratory Rate 16 Blood Pressure 102/52 L Blood Pressure Mean 68 Blood Pressure Location Right Arm Blood Pressure Position Supine O2 Sat by Pulse Oximetry 97 Oxygen Delivery Method Room Air Telemetry Type Remote Telemetry Telemetry Monitoring Continues Telemetry Heart Rate 61 EKG AZ Interval 0.14 EKG QRS Interval 0.07 Telemetry Strip Reading SR Labs This Visit Labs This Visit: Labs This Visit 04/20/23 04/20/23 04/21/23 18:24 22:00 07:20 WBC 12.05 H 10.12 RBC 4.01 L 3.65 L Hgb 9.4 L 8.5 L Hct 28.2 L 26.4 L MCV 70.3 L 72.3 L MCH 23.4 L 23.3 L MCHC 33.3 32.2 RDW Coeff of Jonn 15.8 H 15.9 H Plt Count 354 383 Immature Gran % (Auto) 3.8 4.2 Neut % (Auto) 75.6 H 77.2 H Lymph % (Auto) 10.5 9.5 L Owen % (Auto) 8.8 7.3 Eos % (Auto) 1.0 1.5 Baso % (Auto) 0.3 0.3 Neut # (Auto) 9.1 H 7.8 H Lymph # (Auto) 1.3 1.0 Owen # (Auto) 1.1 0.7 Eos # (Auto) 0.1 0.2 Baso # (Auto) 0.0 0.0 Immature Gran # (Auto) 0.5 0.4 Sodium 127.2 L 136.2 Potassium 3.11 L 3.13 L Chloride 97.9 L 109.4 H Carbon Dioxide 15.6 L 14.4 L Anion Gap 16.81 15.53 BUN 30.8 H 29.6 H Creatinine 1.70 H 1.53 H Estimated GFR (MDRD) 43.00 48.00 BUN/Creatinine Ratio 18.11 19.34 Glucose 73.6 L 73.4 L Calcium 8.21 L 8.36 L Total Bilirubin 0.58 0.34 AST 35.6 29.6 ALT 28.3 25.0 Alkaline Phosphatase 90.5 76.5 Total Protein 7.12 6.42 Albumin 3.44 L 3.03 L Globulin 3.68 3.39 Albumin/Globulin Ratio 0.93 0.89 Urine Color Yellow Urine Clarity Clear Urine pH 5.5 Ur Specific [place] 1.010 Urine Protein Negative Urine Glucose (UA) Negative Urine Ketones Negative Urine Blood Trace-intact H Urine Nitrite Positive H Urine Bilirubin Negative Urine Urobilinogen 0.2 Ur Leukocyte Esterase Trace H Urine Microscopic RBC 2-5 Urine Microscopic WBC 2-5 Ur Squamous Epith Cells Not present Urine Bacteria 1+ Imaging Imaging: EXAM: SINGLE, PORTABLE AP VIEW(S) CHEST. HISTORY: Shortness of breath. COMPARISON: 04/03/2021 TECHNIQUE: Single, portable AP view(s) of the chest. FINDINGS: Postoperative changes in the thoracic spine. There are old healed fractures of the left posterior ribs. Lungs: The lung voulmes are normal.The lungs are clear without consolidation or effusion. There are no suspicious nodules. There is no pneumothorax. Cardiovascular: The heart size and pulmonary vasculature is normal.. The aorta is unremarkable. Yumiko/Mediastinum: Normal. Osseous structures. Normal for age. IMPRESSION: No acute pulmonary disease. Review Review Statement: I have independently reviewed and interpreted the labs/EKGs/imaging that were ordered by the ER provider. I have reviewed all outside records that are available currently in our EMR including imaging/notes/labs from previous visits. Plan Reccomendations/Plan: 1. Symptomatic Hyponatremia - resolved, received NS bolus in ER and NS@125mL/hr throughout the night, osmolalities ordered - send results to PCP for follow-up 2. TIMOTHY - improving with hydration, NS@125mL/hr 3. Leukocytosis - mild, improving, no active signs of infection, likely reactive 4. Hypokalemia - chronic, takes potassium daily, increase to 40 mEq daily until follow-up with PCP 5. Chronic back pain - continue home medications 6. GERD - continue home medications Discussed with patient he would benefit from more hydration, denied further stay and plans to drink more water upon discharge. Additional Planning: Case discussed with ED Physician, Dr. Velazquez DVT Prophylaxis: SCDs Time Spent: Greater than 80 minutes spent with patient, 50% of the time spent with this patient was devoted to counseling and coordination of care. Advanced Care Plannin minutes spent discussing advance care planning. Disposition: Admit to: Med/Surg Observation Discussed Plan of Care with Dr. Teri Rizzo. Review With Patient Reviewed with Patient and Family: Patient and family have been counseled on condition and care plan and have no immediate questions. I have personally discussed and reviewed the patient's visit/current labs/imaging/decision making with Dr. Rhonda Rizzo, my supervising attending. Total number of minutes spent with patient 85 min. More than 50% of the time spent with this patient was devoted to counseling and coordination of care. Time of Admission:04/20/23 22:23 Time of Discharge: 04/21/23 0900 Discharge Plan Discharge Discharge Orders: Discharge Patient (ONCE); Ordered 04/21/23 Ordered By: GABRIELE SALAZAR Activity Restrictions/Additional Instructions: Discharge home today Activity as tolerated Regular diet Drink plenty of fluids Resume all medications. No new medications provided. Follow-up with PCP this week Resume all care with home health and wound care. Instructions: Acute Kidney Injury (GEN), Hyponatremia (GEN) Patient Disposition: HOME SELF-CARE Prescriptions: Continued pantoprazole [Protonix] 40 MG tablet,delayed release (DR/EC) 40 mg PO DAILY lubiprostone [Amitiza] 24 MCG capsule 24 mcg PO BID ibuprofen 200 MG tablet 600 mg PO BID PRN (Reason: PAIN /FEVER) baclofen 20 MG tablet 40 mg PO TID Qty: 120 ascorbic acid (vitamin C) [Vitamin C] 1,000 MG tablet 1,000 mg PO BID (DME) Aquacel AG Foam 1 EACH bandage 1 bandage topical Q48H amitriptyline 25 MG tablet 50 mg PO BEDTIME senna 8.6 mg Capsule 8.6 mg PO DAILY Did you review [place] BRAKE RELINER for ALL controlled substances?: No Discussed opioids are addictive and Narcan is available by prescription or from pharmacy.: No Condition: Stable
[2023-04-21] MEDS ORDERED: PROTONIX PO SCH (09:00)
[2023-04-21] MEDS ORDERED: VITAMIN C PO SCH (09:00)
[2023-04-21 10:22] VITALS: PULSE 78
== END 2023-04-21 09:34 | disposition home or self-care (01) ==
LOC: ED 17:15 → MEDSURG B 17:15
PROVIDERS: ADMIT Hospitalist; ATTEND Nurse Practitioner Family
DX: Z96.0 Presence of urogenital implants; G89.29 Other chronic pain; G82.20 Paraplegia, unspecified; M62.81 Muscle weakness (generalized); Z93.2 Ileostomy status; K21.9 Gastro-esophageal reflux disease without esophagitis; M54.9 Dorsalgia, unspecified; E87.1 Hypo-osmolality and hyponatremia; N30.00 Acute cystitis without hematuria; R51.9 Headache, unspecified; R53.83 Other fatigue; E87.6 Hypokalemia; N17.9 Acute kidney failure, unspecified

== ENCOUNTER 2024-12-03 15:49 | Inpatient (IN) ==
--- NOTE | 2024-12-03 16:15 | ED.PDOC ---
General ED Provider: Dr. TONA MCKENZIE MD Chief Complaint: Non-specific Complaint Stated Complaint: Patient is a 49-year-old male with past medical history of weakness in bilateral lower extremities, hyponatremia, hypokalemia, MDD, KAMINI, pyelonephritis who presents with complaint of feeling dehydrated. The patient has history of alcohol abuse, states that he has stopped drinking alcohol cold last Thursday and since then he has been trying to keep himself hydrated by drinking water. Patient states no matter how much he drinks he still feels that he is dehydrated. Patient denies any headache, lightheadedness, nausea, vomiting, diarrhea, abdominal pain, chest pain, shortness of breath, fever, chills or any urinary symptoms. As per the EMS the patient's vitals were stable and there were no positive findings on the physical examination. Patient denies any other symptoms at this point of time. Time Seen by Provider: 12/03/24 15:55 Mode of Arrival: Ambulance Information Source: Patient Exam Limitations: No limitations Nursing and Triage Documentation Reviewed and Agree: Yes What is Opioid Naive?: *Opioid Naive implies the patient is not already taking opioids or not chronically receiving opioids on a daily basis. *PRN dosing is not "usually" associated with tolerance. *Patients are at higher risk of over-sedation and aspiration. What is Opioid Tolerant?: *Opioid Tolerance implies less than the expected response to an opioid. *Acquired tolerance is defined by the patient taking 60mg of oral morphine daily (or equianalgesic dose of another opioid) for 1 week or more. *Often associated with chronic pain. *May take more than usual dose to achieve desired pain control. Review of Systems Review Of Systems Constitutional: Reports No symptoms Eyes: Reports No symptoms Ears, Nose, Mouth, Throat: Reports No symptoms Respiratory: Reports No symptoms Cardiac: Reports No symptoms GI: Reports No symptoms : Reports No symptoms Musculoskeletal: Reports No symptoms Skin: Reports No symptoms Neurological: Reports No symptoms Endocrine: Reports Increased thirst Hematologic/Lymphatic: Reports No symptoms All Other Systems: Reviewed and Negative [facility] Medical History Chronic back pain M54.9 - Dorsalgia, unspecified (ICD-10) Frequent UTI N39.0 - Urinary tract infection, site not specified (ICD-10) Depression F32.9 - Major depressive disorder, single episode, unspecified (ICD-10) Anxiety F41.9 - Anxiety disorder, unspecified (ICD-10) Chronic pain G89.29 - Other chronic pain (ICD-10) Paraplegia G82.20 - Paraplegia, unspecified (ICD-10) Family History Mother No problems noted. FATHER Cardiac disease Other COPD (chronic obstructive pulmonary disease) Social History Smoking and tobacco status: Former smoker Tobacco: How many years used: 40 Alcohol intake: current Alcohol intake frequency: holidays/special occasions only Substance use type: marijuana Jen/restorationism: GNOSTICISM Special jen needs: No Agree to transfusion: Yes Adopted: No Caregiver/support person: No Household members: none Housing: apartment Marital status: D Number of children: 0 Highest education level completed: 11th grade Financial difficulty paying for basics: not very hard service: No Current occupational status: disabled Pets and animals: No Leisure activites: sports, music and games Current gender identity: male Seatbelt use: always Water heater temperature set < 120 degrees: Yes Working smoke detector in home: Yes Fire extinguisher in home: Yes Carbon monoxide detector in home: No Firearms in home: No Surgical History History of creation of ostomy Z93.9 - Artificial opening status, unspecified (ICD-10) History of musculoskeletal system surgery pressure ulcer Z98.890 - Other specified postprocedural states (ICD-10) Status post cholecystectomy Z90.49 - Acquired absence of other specified parts of digestive tract (ICD- 10) Status post appendectomy back and neck surgery Z90.49 - Acquired absence of other specified parts of digestive tract (ICD- 10) Physical Exam Physical Exam Appearance: Reports Well-appearing, No pain distress, Well-nourished and Obese Ill-appearing: None Pain Distress: None Eyes: Reports MARGI, EOMI and Conjunctiva clear ENT: Reports Nose normal and Oropharynx normal Neck: Supple Respiratory: Reports Airway patent, Breath sounds clear, Breath sounds equal and Respirations nonlabored Cardiovascular: Reports RRR and Pulses normal GI/: Reports Soft, Nontender and No masses Musculoskeletal: Reports Other (Chronic bilateral lower edema unchanged. Edema is pitting.) Skin: Reports Warm and Normal color Neurological: Reports Cranial nerves intact, Alert and Oriented Psychiatric: Reports Anxious Course Course 12/04/24 05:53 12/04/24 05:53 Orders, Labs, Meds: Lab Review 12/03/24 12/03/24 12/03/24 16:14 16:15 18:00 WBC 13.75 H RBC 4.78 Hgb 10.8 L Hct 35.0 L MCV 73.2 L MCH 22.6 L MCHC 30.9 L RDW Coeff of Jonn 18.0 H Plt Count 312 Neutrophils % (Manual) 71.0 Lymphocytes % (Manual) 23.0 Monocytes % (Manual) 12.0 H Anisocytosis Not present Sodium 127.3 L Potassium 2.84 L Chloride 91.1 L Carbon Dioxide 28.9 Anion Gap 10.14 BUN 11.3 Creatinine 0.91 Estimated GFR (MDRD) 88.00 BUN/Creatinine Ratio 12.41 Glucose 87.7 Calcium 8.36 L Total Bilirubin 0.82 AST 93.0 H ALT 85.8 H Alkaline Phosphatase 87.3 Total Protein 5.84 L Albumin 2.66 L Globulin 3.18 Albumin/Globulin Ratio 0.83 Plasma/Serum Alcohol < 10.0 SARS CoV-2 RNA Rapid MICHELLE Negative Orders Category Date Time Status ADMIT OBSERVATION [PLACE PATIENT OBSERVATION] .TO ADMISSION 12/03/24 19:09 Active MEDSURG (MONITORED BED) TELEMETRY MONITORING TELE CARE 12/03/24 19:09 Active ALCOHOL LEVEL [BLOOD ALCOHOL] Stat LAB 12/03/24 16:15 Completed CBC W/ AUTO DIFF Stat LAB 12/03/24 16:14 Completed CMP [COMPREHENSIVE METABOLIC PANEL] Stat LAB 12/03/24 16:14 Completed COVID [SARS COV-2 RNA RAPID MICHELLE] Stat LAB 12/03/24 18:00 Completed MANUAL DIFFERENTIAL Stat LAB 12/03/24 16:14 Completed Dextrose 5 % and 0.9 % NaCl [Dextrose 5%-Ns IV Solution Meds 12/03/24 19:00 Active ] 1,000 ml Mvi, Adult No.1 with Vit K [Infuvite Adult] 10 ml IV 100 mls/hr Folic Acid 1 mg Meds 12/03/24 19:00 Active 0.9 % Sodium Chloride [Sodium Chloride] 50 ml IV DAILY Potassium Chloride [K-Dur] Meds 12/03/24 18:57 Discontinued 40 meq PO ONCE STA Vitamin B-1 Inj [Thiamine] 100 mg Meds 12/03/24 19:00 Active 0.9 % Sodium Chloride [Sodium Chloride] 50 ml IV DAILY Medications Generic Name Dose Route Start Last Admin Trade Name Gamalielq PRN Reason Stop Dose Admin Acetaminophen 650 mg 12/03/24 20:08 Acetaminophen 325 Mg Tablet PO Q4H PRN Mild Pain Amitriptyline HCl 50 mg 12/03/24 23:00 12/04/24 00:01 Amitriptyline Hcl 25 Mg Tablet PO 50 mg BEDTIME YA Administration Ascorbic Acid 1,000 mg 12/04/24 09:00 Ascorbic Acid 500 Mg Tablet PO BID YA Baclofen 40 mg 12/03/24 23:00 12/04/24 00:01 Baclofen 10 Mg Tablet PO 40 mg TID YA Administration Multivitamins/Minerals 10 ml/ 1,010 mls @ 100 mls/hr 12/03/24 19:00 12/04/24 05:12 Dextrose/Sodium Chloride IV 100 mls/hr .Q10H6M YA Administration Folic Acid 1 mg/ Sodium 50.2 mls @ 100 mls/hr 12/03/24 19:00 12/03/24 21:09 Chloride IV 100 mls/hr DAILY YA Administration Thiamine HCl 100 mg/ Sodium 51 mls @ 100 mls/hr 12/03/24 19:00 12/03/24 20:32 Chloride IV 100 mls/hr DAILY YA Administration CEFTRIAXONE/D5W 1 GM PREMIX 1 gm in 50 mls @ 100 mls/hr 12/04/24 00:16 12/04/24 02:18 Rocephin 1 Gm/50 Ml D5w IV 12/07/24 00:15 100 mls/hr DAILY YA Administration Pantoprazole Sodium 40 mg 12/04/24 09:00 Pantoprazole Sodium 40 Mg Tablet. PO DAILY YA Discontinued Medications Generic Name Dose Route Start Last Admin Trade Name Gamalielq PRN Reason Stop Dose Admin Potassium Chloride 40 meq in 200 mls @ 50 mls/hr 12/03/24 20:08 12/04/24 00:01 Potassium Chloride 20 Meq/100 Ml Premix IV 12/04/24 00:07 50 mls/hr ONCE ONE Administration Potassium Chloride 40 meq 02/15/25 18:57 12/03/24 20:10 Potassium Chloride 20 Meq Tab PO 12/03/24 18:58 40 meq ONCE STA Administration Vital Signs: Temp Pulse Resp BP Pulse Ox 12/03/24 15:52 99.0 F 109 H 20 139/73 100 Differential diagnosis include but not limited to DKA, hyperglycemia, psychogenic polydipsia, SIADH, alcohol abuse, dehydration, UTI. ER course: Patient is a 49-year-old male who presented with complaint of feeling dehydrated. Patient has not been throwing up or having diarrhea and likely he is losing water from the body. The lab work shows patient has a white count of 13.75 his hemoglobin is 10.8. Patient has a normal anion gap of 10.14. Patient had a potassium of 2.84 and a sodium of 127.3. Patient was started on IV fluids and potassium was replaced orally. Will admit to the hospital for further management of the symptoms and lab findings. Patient and at bedside, plan discussed, patient will be admitted. Discussed with Samir Flores NP for Dr. Mani Rizzo, hospitalist. Discharge Plan Discharge Patient Disposition: ADMITTED INPATIENT Discharge Problem: Hypokalemia, Acute hyponatremia, History of ETOH abuse Did you review [place] [employer] for ALL controlled substances?: Not Applicable ED Provider: TONA MCKENZIE Condition: Good
[2024-12-03 16:37] LABS: HEMOGLOBIN 10.8 g/dl (14.0-18.0); MEAN CORPUSCULAR HEMOGLOBIN 22.6 pg (27.0-31.0); MEAN CORPUSCULAR HGB CONC 30.9 (31.8-35.4); MEAN CORPUSCULAR VOLUME 73.2 fl (80.0-94.0); PLATELET COUNT 312 10^3/uL (140-440); RED BLOOD COUNT 4.78 10^6/ul (4.70-6.10); WHITE BLOOD COUNT 13.75 K/ul (4.2-10.2)
[2024-12-03 16:45] LABS: ANISOCYTOSIS NOT PRESENT (NOT PRESENT)
[2024-12-03 17:10] LABS: ALANINE AMINOTRANSFERASE 85.8 U/L (0-50); ALBUMIN 2.66 g/dL (3.5-5.0); ALKALINE PHOSPHATASE 87.3 U/L (38-126); BILIRUBIN,TOTAL 0.82 mg/dL (0.2-1.3); BLOOD UREA NITROGEN 11.3 mg/dL (9-20); CALCIUM 8.36 mg/dL (8.4-10.2); CARBON DIOXIDE 28.9 mmol/L (22-30.0); CHLORIDE 91.1 mmol/L (98-107); CREATININE 0.91 mg/dL (0.60-1.10); GLUCOSE 87.7 mg/dL (74-106); POTASSIUM 2.84 mmol/L (3.5-5.1); SODIUM 127.3 mmol/L (134.5-145); TOTAL PROTEIN 5.84 g/dL (6.3-8.2)
[2024-12-03 18:17] LABS: SARS COV-2 RNA RAPID NAAT NEGATIVE (NEGATIVE)
[2024-12-03] MEDS ORDERED: TYLENOL PO PRN (20:08)
[2024-12-03] MEDS: K-DUR PO STA (20:10)
[2024-12-03] MEDS: INFUVITE ADULT 10 ML in DEXTROSE 5%-NS IV SOLUTION 1,000 ML IV SCH (20:27)
[2024-12-03] MEDS: THIAMINE 100 MG in SODIUM CHLORIDE 50 ML IV SCH (20:32)
[2024-12-03] MEDS: FOLIC ACID 1 MG in SODIUM CHLORIDE 50 ML IV SCH (21:09)
[2024-12-03] MEDS: INFUVITE ADULT IV ONE ×2 (21:10→21:11)
[2024-12-03] MEDS: THIAMINE ONE (21:11)
[2024-12-03] MEDS: FOLIC ACID ONE (21:12)
[2024-12-03 22:11] VITALS: BMI 26.7
[2024-12-03 23:04] LABS: BILIRUBIN,URINE Negative (NEGATIVE); CLARITY,URINE Clear (CLEAR); COLOR,URINE Yellow (YELLOW); GLUCOSE, URINE (UA) Negative (NEGATIVE); KETONES,URINE 2+ (NEGATIVE); LEUKOCYTE ESTERASE ,URINE 1+ (NEGATIVE); NITRITE,URINE Positive (NEGATIVE); PROTEIN,URINE 2+ (NEGATIVE); URINE, BLOOD Negative (NEGATIVE)
[2024-12-03 23:12] LABS: AMORPHOUS SEDIMENT,UR 1+ (NOT PRESENT); BACTERIA,URINE 2+ (NOT PRESENT); SQUAMOUS EPITHELIAL CELL,UR 50-100 (0-5); URINE RBC, MICROSCOPIC 0-2 (0-2); URINE WBC, MICROSCOPIC 20-30 (0-2)
[2024-12-04] MEDS: POTASSIUM CHLORIDE 20 MEQ/100 ML PREMIX 40 MEQ/200 ML BAG IV ONE (00:01)
[2024-12-04] MEDS: ELAVIL PO SCH (00:01)
[2024-12-04] MEDS: BACLOFEN PO SCH (00:01)
[2024-12-04] MEDS: ROCEPHIN 1 GM/50 ML D5W 1 GM/50 ML BAG IV SCH ×2 (02:18→21:17)
[2024-12-04] MEDS: INFUVITE ADULT IV ONE (05:12)
[2024-12-04 06:05] LABS: HEMATOCRIT 33.3 % (42.0-52.0); HEMOGLOBIN 10.3 g/dl (14.0-18.0); MEAN CORPUSCULAR HEMOGLOBIN 22.4 pg (27.0-31.0); MEAN CORPUSCULAR HGB CONC 30.9 (31.8-35.4); MEAN CORPUSCULAR VOLUME 72.4 fl (80.0-94.0); PLATELET COUNT 292 10^3/uL (140-440); RDW COEFFICIENT OF VARIATION 17.6 % (11.6-14.8); WHITE BLOOD COUNT 13.96 K/ul (4.2-10.2)
[2024-12-04 06:22] LABS: ANISOCYTOSIS NOT PRESENT (NOT PRESENT)
[2024-12-04 06:26] LABS: ALANINE AMINOTRANSFERASE 77.5 U/L (0-50); ALBUMIN 2.41 g/dL (3.5-5.0); ALKALINE PHOSPHATASE 83.7 U/L (38-126); ASPARTATE AMINO TRANSFERASE 69.9 U/L (17-59); BILIRUBIN,TOTAL 0.45 mg/dL (0.2-1.3); BLOOD UREA NITROGEN 10.6 mg/dL (9-20); CALCIUM 8.13 mg/dL (8.4-10.2); CARBON DIOXIDE 25.1 mmol/L (22-30.0); CREATININE 0.85 mg/dL (0.60-1.10); POTASSIUM 3.11 mmol/L (3.5-5.1); SODIUM 132.3 mmol/L (134.5-145); TOTAL PROTEIN 5.33 g/dL (6.3-8.2)
[2024-12-04] MEDS: VITAMIN C PO SCH (08:58)
[2024-12-04] MEDS: PROTONIX PO SCH (09:02)
[2024-12-04] MEDS ORDERED: POTASSIUM CHLORIDE 20 MEQ/100 ML PREMIX 40 MEQ/200 ML BAG IV ONE (09:10)
[2024-12-04] MEDS: K-DUR PO ONE (11:28)
--- NOTE | 2024-12-04 18:05 | PCM ---
Date of Service Date Seen by Provider: 12/04/24 Time Seen by Provider: 10:15 Admit Day/Time Admission Date: 12/03/24 Reason for Admission Chief Complaint: HYPONATREMIA,HYPOKALEMIA,PSCHCHOGENIC POLYDIPSIA Hospital Provider Hospital Provider: SANDRA GAFFNEY, [facility] History of Present Illness History of Present Illness: 49 yo male with pmh of paraplegia, chronic suprapubic cottrell, ETOH abuse, and pressure ulcers presented to the ER with concerns for dehydration. Patient states he stopped drinking alcohol 1 week ago and since then he has been drinking excessive amounts of water and his mouth feels dry. No s/sx of withdrawal present. Denies any other symptoms. Found to have a sodium of 127.3. Mild Leukocytosis. Admitted to med/surg observation. Overnight, manager staffing reported fever, cloudy urine, and purulent drainage from wound to L hip wound. UA collected with concern for UTI and rocephin was started. Case Discussed With Case Discussed With: Patient's case was discussed with the ER Physicians, Dr. Ramirez. [facility] Medical History Chronic back pain M54.9 - Dorsalgia, unspecified (ICD-10) Frequent UTI N39.0 - Urinary tract infection, site not specified (ICD-10) Depression F32.9 - Major depressive disorder, single episode, unspecified (ICD-10) Anxiety F41.9 - Anxiety disorder, unspecified (ICD-10) Chronic pain G89.29 - Other chronic pain (ICD-10) Paraplegia G82.20 - Paraplegia, unspecified (ICD-10) Surgical History History of creation of ostomy Z93.9 - Artificial opening status, unspecified (ICD-10) History of musculoskeletal system surgery pressure ulcer Z98.890 - Other specified postprocedural states (ICD-10) Status post cholecystectomy Z90.49 - Acquired absence of other specified parts of digestive tract (ICD- 10) Status post appendectomy back and neck surgery Z90.49 - Acquired absence of other specified parts of digestive tract (ICD- 10) Family History Mother No problems noted. FATHER Cardiac disease Other COPD (chronic obstructive pulmonary disease) Social History Smoking and tobacco status: Former smoker Tobacco: How many years used: 40 Alcohol intake: current Alcohol intake frequency: holidays/special occasions only Substance use type: marijuana Jen/advent: TEMPLE Special jen needs: No Agree to transfusion: Yes Adopted: No Caregiver/support person: No Household members: none Housing: apartment Marital status: D Number of children: 0 Highest education level completed: 11th grade Financial difficulty paying for basics: not very hard service: No Current occupational status: disabled Pets and animals: No Leisure activites: sports, music and games Current gender identity: male Seatbelt use: always Water heater temperature set < 120 degrees: Yes Working smoke detector in home: Yes Fire extinguisher in home: Yes Carbon monoxide detector in home: No Firearms in home: No Allergies Allergies Allergy/AdvReac Type Severity Reaction Status Date / Time morphine Allergy Severe rash Verified 12/03/24 15:56 Sulfa (Sulfonamide Allergy Rash Verified 12/03/24 15:56 Antibiotics) adhesive AdvReac Rash Verified 12/03/24 15:56 fentanyl AdvReac Rash Verified 12/03/24 15:56 linaclotide (From Linzess) AdvReac Rash Verified 12/03/24 15:56 nitrofurantoin AdvReac Rash Verified 12/03/24 15:56 Current Medications Home Medications Acetaminophen (Acetaminophen 325 Mg Tablet) 650 mg PO Q4H PRN PRN Reason: Mild Pain Amitriptyline HCl (Amitriptyline Hcl 25 Mg Tablet) 50 mg PO BEDTIME YA Last Admin: 12/04/24 00:01 Dose: 50 mg Ascorbic Acid (Ascorbic Acid 500 Mg Tablet) 1,000 mg PO BID YA Last Admin: 12/04/24 08:58 Dose: 1,000 mg Baclofen (Baclofen 10 Mg Tablet) 40 mg PO TID YA Last Admin: 12/04/24 15:15 Dose: 40 mg CEFTRIAXONE/D5W 1 GM PREMIX (Rocephin 1 Gm/50 Ml D5w) 1 gm in 50 mls @ 100 mls/hr IV BEDTIME YA Stop: 12/07/24 00:15 Folic Acid 1 mg/ Sodium (Chloride) 50.2 mls @ 100 mls/hr IV BEDTIME YA Thiamine HCl 100 mg/ Sodium (Chloride) 51 mls @ 100 mls/hr IV BEDTIME YA Sodium Chloride (Sodium Chloride) 1,000 mls @ 100 mls/hr IV .Q10H YA Pantoprazole Sodium (Pantoprazole Sodium 40 Mg Tablet.) 40 mg PO QDAC2 YA Last Admin: 12/04/24 09:02 Dose: 40 mg pantoprazole 40 mg tablet,delayed release (Protonix) 40 mg PO DAILY 08/03/14 [History Confirmed 12/03/24] baclofen 20 mg tablet 40 mg PO TID #120 tab-caps 12/18/14 [History Confirmed 12/03/24] ibuprofen 200 mg tablet 600 mg PO BID PRN PAIN /FEVER 12/18/14 [History Confirmed 12/03/24] ascorbic acid (vitamin C) 1,000 mg tablet (Vitamin C) 1,000 mg PO BID 06/06/18 [History Confirmed 12/03/24] amitriptyline 50 mg tablet 50 mg PO QHS #30 tabs 08/26/23 [Rx Confirmed 12/03/24] lamotrigine 25 mg tablet (Lamictal) See Rx Instructions .Route .COMPLEX #60 tabs 08/26/23 [Rx Confirmed 12/03/24] Opioid Naive vs. Tolerant Does Patient Take Opioids?: No Is Patient Opioid Naive?: Yes What is Opioid Naive?: *Opioid Naive implies the patient is not already taking opioids or not chronically receiving opioids on a daily basis. *PRN dosing is not "usually" associated with tolerance. *Patients are at higher risk of over-sedation and aspiration. Is Patient Opioid Tolerant?: No What is Opioid Tolerant?: *Opioid Tolerance implies less than the expected response to an opioid. *Acquired tolerance is defined by the patient taking 60mg of oral morphine daily (or equianalgesic dose of another opioid) for 1 week or more. *Often associated with chronic pain. *May take more than usual dose to achieve desired pain control. Review of Systems Constitutional: Reports Weakness Head: Reports Normocephalic Eyes: Reports No symptoms Ears: Reports No symptoms Nose: Reports No symptoms Mouth: Reports No symptoms Throat: Reports No symptoms Cardiovascular: Reports No symptoms Respiratory: Reports No symptoms Gastrointestinal: Reports No symptoms Genitourinary: Reports No Symptoms Musculoskeletal: Reports No symptoms Endocrine: Reports No symptoms Hematology: Reports No symptoms Immunology: Reports No symptoms Neurological: Reports No symptoms Psychiatric: Reports No symptoms Physical examination Most Recent Vital Signs: Most Recent Vital Signs Temperature 99.8 F 12/04/24 14:00 Temperature Source Temporal Artery Scan 12/04/24 14:00 Temperature Source Infrared 12/03/24 15:52 Pulse Rate 132 H 12/04/24 14:00 Respiratory Rate 18 12/04/24 14:00 Blood Pressure 129/74 12/04/24 14:00 Blood Pressure Mean 92 12/04/24 14:00 Blood Pressure Left Arm 139/67 12/03/24 21:49 Blood Pressure Location Left Arm 12/04/24 14:00 Blood Pressure Position Supine 12/04/24 14:00 O2 Sat by Pulse Oximetry 99 12/04/24 14:00 Oxygen Delivery Method Room Air 12/04/24 17:00 Height 6 ft 12/03/24 21:49 Weight 89.5 kg 12/03/24 21:49 Telemetry Type Remote Telemetry 12/04/24 13:00 Telemetry Monitoring Continues 12/04/24 13:00 Telemetry Heart Rate 90 12/04/24 13:00 EKG LA Interval 0.09 L 12/04/24 13:00 EKG QRS Interval 0.09 12/04/24 13:00 Telemetry Strip Reading NSR WITH NOISE 12/04/24 13:00 Appearance: Positive No Apparent Distress and Alert and Oriented x3 Skin: Positive Other (Stage 3 pressure ulcer with tunneling to L buttock, large amounts of purulent discharge present with foul oder, healing edges) HEENT: Positive Normocephalic and PERRLA Neck: Positive Supple and Midline Trachea Chest/Lungs: Positive Symmetrical With Equal Breath Sounds, Clear to Auscultation Bilaterally and Good Air Movement all 4 Lung Dsouza Heart: Positive RRR and Pulses Normal GI/: Positive Soft, Nontender, Bowel Sounds Normal, No Distention and Other (suprapubic catheter intact) Musculoskeletal: Positive Not Examined Extremities: Positive Intact Peripheral Pulses, Stable Joints Without Laxity and Other (paraplegia to BLE) Neurological: Positive Sensation Intact, Motor intact (BUE), Alert and Oriented Labs This Visit Labs This Visit: Labs This Visit 12/03/24 12/03/24 12/03/24 16:14 16:15 18:00 WBC 13.75 H RBC 4.78 Hgb 10.8 L Hct 35.0 L MCV 73.2 L MCH 22.6 L MCHC 30.9 L RDW Coeff of Jonn 18.0 H Plt Count 312 Neutrophils % (Manual) 71.0 Band Neutrophils % Lymphocytes % (Manual) 23.0 Monocytes % (Manual) 12.0 H Reactive Lymphocytes Anisocytosis Not present Sodium 127.3 L Potassium 2.84 L Chloride 91.1 L Carbon Dioxide 28.9 Anion Gap 10.14 BUN 11.3 Creatinine 0.91 Estimated GFR (MDRD) 88.00 BUN/Creatinine Ratio 12.41 Glucose 87.7 Calcium 8.36 L Total Bilirubin 0.82 AST 93.0 H ALT 85.8 H Alkaline Phosphatase 87.3 Total Protein 5.84 L Albumin 2.66 L Globulin 3.18 Albumin/Globulin Ratio 0.83 Urine Color Urine Clarity Urine pH Ur Specific [place] Urine Protein Urine Glucose (UA) Urine Ketones Urine Blood Urine Nitrite Urine Bilirubin Urine Urobilinogen Ur Leukocyte Esterase Urine Microscopic RBC Urine Microscopic WBC Ur Squamous Epith Cells Amorphous Sediment Urine Bacteria Plasma/Serum Alcohol < 10.0 SARS CoV-2 RNA Rapid MICHELLE Negative 12/03/24 12/04/24 20:22 05:53 WBC 13.96 H RBC 4.60 L Hgb 10.3 L Hct 33.3 L MCV 72.4 L MCH 22.4 L MCHC 30.9 L RDW Coeff of Jonn 17.6 H Plt Count 292 Neutrophils % (Manual) 65.0 Band Neutrophils % 12.0 H Lymphocytes % (Manual) 8.0 L Monocytes % (Manual) 9.0 Reactive Lymphocytes 6.0 H Anisocytosis Not present Sodium 132.3 L Potassium 3.11 L Chloride 101.0 Carbon Dioxide 25.1 Anion Gap 9.31 BUN 10.6 Creatinine 0.85 Estimated GFR (MDRD) 95.00 BUN/Creatinine Ratio 12.47 Glucose 142.0 H D Calcium 8.13 L Total Bilirubin 0.45 AST 69.9 H ALT 77.5 H Alkaline Phosphatase 83.7 Total Protein 5.33 L Albumin 2.41 L Globulin 2.92 Albumin/Globulin Ratio 0.82 Urine Color Yellow Urine Clarity Clear Urine pH 6.0 Ur Specific Bourbon 1.015 Urine Protein 2+ H Urine Glucose (UA) Negative Urine Ketones 2+ H Urine Blood Negative Urine Nitrite Positive H Urine Bilirubin Negative Urine Urobilinogen 2.0 H Ur Leukocyte Esterase 1+ H Urine Microscopic RBC 0-2 Urine Microscopic WBC 20-30 Ur Squamous Epith Cells 50-100 Amorphous Sediment 1+ Urine Bacteria 2+ Plasma/Serum Alcohol SARS CoV-2 RNA Rapid MICHELLE Microbiology This Visit 12/03/24 20:22 Urine,Random Urine Culture - Preliminary 12/04/24 00:40 Drainage Wound Culture - Preliminary Review Statement Review Statement: I have independently reviewed and interpreted the labs/EKGs/imaging that were ordered by the ER provider. I have reviewed all outside records that are availa ble currently in our EMR including imaging/notes/labs from previous visits. Plan Plan: 1. Hyponatremia, severe in setting of polydipsia - fluid restriction, NS@100mL/hr, osmolalities ordered 2. UTI - urine culture showing growth of gram neg rods, rocephin 1G Q24H 3. Stage 3 Pressure Ulcer to L hip - concern for infection due to purulent drainage, wound culture pending, continue previous wound care orders, goes to [place] for wound care 4. ETOH Abuse - out of window for withdrawal, no s/sx, folic acid and thaimine ordered 5. Hypokalemia - mild, replacement given 6. Anxiety/Depression - continue home medications DVT Prophylaxis: Lovenox Time Spent: Greater than 80 minutes spent with patient, 50% of the time spent with this patient was devoted to counseling and coordination of care. [facility] minutes spent discussing advance care planning. Disposition: Admit to: Med/Surg Observation Full Code Discussed Plan of Care with Dr. Teri Rizzo. Medications Medication Orders: Medications Ordered Category Date Time Status Acetaminophen [Tylenol] Meds 12/03/24 20:08 Active 650 mg PO Q4H PRN Amitriptyline HCl [Elavil] Meds 12/03/24 23:00 Active 50 mg PO BEDTIME Ascorbic Acid [Vitamin C] Meds 12/04/24 09:00 Active 1,000 mg PO BID Baclofen Meds 12/03/24 23:00 Active 40 mg PO TID Ceftriaxone/D5w 1 gm Premix [Rocephin 1 gm/50 ml D5w] Meds 12/04/24 21:00 Active 1 gm in 50 ml IV BEDTIME Dextrose 5 % and 0.9 % NaCl [Dextrose 5%-Ns IV Solution Meds 12/03/24 19:00 Active ] 1,000 ml Mvi, Adult No.1 with Vit K [Infuvite Adult] 10 ml IV 100 mls/hr Folic Acid 1 mg Meds 12/04/24 21:00 Active 0.9 % Sodium Chloride [Sodium Chloride] 50 ml IV BEDTIME Pantoprazole Sodium [Protonix] Meds 12/04/24 09:00 Active 40 mg PO QDAC2 Vitamin B-1 Inj [Thiamine] 100 mg Meds 12/04/24 21:00 Active 0.9 % Sodium Chloride [Sodium Chloride] 50 ml IV BEDTIME
[2024-12-04] MEDS: SODIUM CHLORIDE 1,000 ML IV SCH (18:19)
[2024-12-04] MEDS: THIAMINE ONE (21:14)
[2024-12-04] MEDS: FOLIC ACID ONE (21:17)
[2024-12-04] MEDS: THIAMINE 100 MG in SODIUM CHLORIDE 50 ML IV SCH (22:21)
[2024-12-04] MEDS: FOLIC ACID 1 MG in SODIUM CHLORIDE 50 ML IV SCH (23:13)
[2024-12-05 05:35] LABS: HEMATOCRIT 33.5 % (42.0-52.0); HEMOGLOBIN 10.1 g/dl (14.0-18.0); MEAN CORPUSCULAR HEMOGLOBIN 22.6 pg (27.0-31.0); MEAN CORPUSCULAR HGB CONC 30.1 (31.8-35.4); MEAN CORPUSCULAR VOLUME 74.9 fl (80.0-94.0); PLATELET COUNT 317 10^3/uL (140-440); RDW COEFFICIENT OF VARIATION 17.9 % (11.6-14.8); RED BLOOD COUNT 4.47 10^6/ul (4.70-6.10); WHITE BLOOD COUNT 17.05 K/ul (4.2-10.2)
[2024-12-05 05:49] LABS: ALANINE AMINOTRANSFERASE 67.3 U/L (0-50); ALBUMIN 2.2 g/dL (3.5-5.0); ALKALINE PHOSPHATASE 90.6 U/L (38-126); ASPARTATE AMINO TRANSFERASE 50.2 U/L (17-59); BILIRUBIN,TOTAL 0.34 mg/dL (0.2-1.3); BLOOD UREA NITROGEN 8.3 mg/dL (9-20); CALCIUM 8.51 mg/dL (8.4-10.2); CARBON DIOXIDE 29.5 mmol/L (22-30.0); CHLORIDE 102.6 mmol/L (98-107); CREATININE 0.85 mg/dL (0.60-1.10); POTASSIUM 3.34 mmol/L (3.5-5.1); SODIUM 135.9 mmol/L (134.5-145); TOTAL PROTEIN 5.33 g/dL (6.3-8.2)
[2024-12-05] MEDS: K-DUR PO ONE (09:12)
[2024-12-05] MEDS: VANCOMYCIN 1.5 GRAM/300 ML PREMIX 1.5 GM/300 ML BAG IV SCH (10:30)
--- NOTE | 2024-12-05 13:24 | PCM.PROG ---
Date/Time Seen Date Seen by Provider: 12/05/24 Time Seen by Provider: 08:50 Provider Provider: JOSE MIGUEL FINCH PA-C, [facility] Chief Complaint Chief Complaint: HYPONATREMIA,HYPOKALEMIA,PSCHCHOGENIC POLYDIPSIA Subjective Subjective: Sodium improved. WBC count worsened. Would culture growing gram positive cocci. Vanc added to regimen. Pt has concerns as he states he can no longer get home health due to his insurance. He is unsure who is going to change his wound vac, states it is changed twice weekly (once by home health and once at his wound care clinic). Objective Appearance: Positive No Apparent Distress and Alert and Oriented x3 Chest/Lungs: Positive Clear to Auscultation Bilaterally; Negative Rales, Rhonci or Wheezes Heart: Positive RRR GI/: Positive Soft, Nontender, Bowel Sounds Normal and No Distention Neurological: Positive Alert and Oriented Additional Findings: Left hip = Stage 3 pressure ulcer with tunneling to L buttock, large amounts of drainage present, healing edges, wound bed looks good overall. Vital Signs Vital Signs: Vital Signs: Last 24 Hours 12/04/24 14:00 12/04/24 14:00 12/04/24 15:00 Temperature 99.8 F Temperature Source Temporal Artery Scan Pulse Rate 132 H Pulse Rate [Apical] Respiratory Rate 18 Blood Pressure 129/74 Blood Pressure Mean 92 Blood Pressure Location Left Arm Blood Pressure Position Supine O2 Sat by Pulse Oximetry 99 Oxygen Delivery Method Room Air Room Air Room Air Telemetry Strip Reading 12/04/24 16:00 12/04/24 17:00 12/04/24 17:58 Temperature Temperature Source Pulse Rate Pulse Rate [Apical] Respiratory Rate Blood Pressure Blood Pressure Mean Blood Pressure Location Blood Pressure Position O2 Sat by Pulse Oximetry Oxygen Delivery Method Room Air Room Air Room Air Telemetry Strip Reading 12/04/24 17:58 12/04/24 19:00 12/04/24 19:00 Temperature 99.2 F Temperature Source Temporal Artery Scan Pulse Rate 116 H Pulse Rate [Apical] Respiratory Rate 18 Blood Pressure 114/72 Blood Pressure Mean 86 Blood Pressure Location Left Arm Blood Pressure Position Supine O2 Sat by Pulse Oximetry 99 Oxygen Delivery Method Room Air Room Air Telemetry Strip Reading REFUSED 12/04/24 20:00 12/04/24 20:00 12/04/24 21:00 Temperature Temperature Source Pulse Rate Pulse Rate [Apical] 106 H Respiratory Rate Blood Pressure Blood Pressure Mean Blood Pressure Location Blood Pressure Position O2 Sat by Pulse Oximetry Oxygen Delivery Method Room Air Room Air Telemetry Strip Reading 12/04/24 21:08 12/04/24 21:52 12/04/24 23:00 Temperature 98.6 F Temperature Source Temporal Artery Scan Pulse Rate 108 H Pulse Rate [Apical] Respiratory Rate 19 Blood Pressure 133/69 Blood Pressure Mean 90 Blood Pressure Location Left Arm Blood Pressure Position Supine O2 Sat by Pulse Oximetry 98 Oxygen Delivery Method Room Air Room Air Room Air Telemetry Strip Reading 12/05/24 00:00 12/05/24 01:00 12/05/24 01:00 Temperature Temperature Source Pulse Rate Pulse Rate [Apical] Respiratory Rate Blood Pressure Blood Pressure Mean Blood Pressure Location Blood Pressure Position O2 Sat by Pulse Oximetry Oxygen Delivery Method Room Air Room Air Telemetry Strip Reading REFUSED 12/05/24 02:00 12/05/24 03:00 12/05/24 04:00 Temperature Temperature Source Pulse Rate Pulse Rate [Apical] Respiratory Rate Blood Pressure Blood Pressure Mean Blood Pressure Location Blood Pressure Position O2 Sat by Pulse Oximetry Oxygen Delivery Method Room Air Room Air Room Air Telemetry Strip Reading 12/05/24 05:00 12/05/24 05:19 12/05/24 06:00 Temperature 97.9 F Temperature Source Temporal Artery Scan Pulse Rate 99 Pulse Rate [Apical] Respiratory Rate 18 Blood Pressure 130/76 Blood Pressure Mean 94 Blood Pressure Location Left Arm Blood Pressure Position Supine O2 Sat by Pulse Oximetry 96 Oxygen Delivery Method Room Air Room Air Room Air Telemetry Strip Reading 12/05/24 07:00 12/05/24 08:00 12/05/24 09:00 Temperature Temperature Source Pulse Rate Pulse Rate [Apical] Respiratory Rate Blood Pressure Blood Pressure Mean Blood Pressure Location Blood Pressure Position O2 Sat by Pulse Oximetry Oxygen Delivery Method Room Air Room Air Room Air Telemetry Strip Reading 12/05/24 09:38 12/05/24 09:38 12/05/24 11:00 Temperature 97.5 F L Temperature Source Temporal Artery Scan Pulse Rate 99 Pulse Rate [Apical] Respiratory Rate 16 Blood Pressure 107/64 Blood Pressure Mean 78 Blood Pressure Location Right Arm Blood Pressure Position Supine O2 Sat by Pulse Oximetry 99 Oxygen Delivery Method Room Air Room Air Room Air Telemetry Strip Reading 12/05/24 12:00 12/05/24 13:00 Temperature Temperature Source Pulse Rate Pulse Rate [Apical] Respiratory Rate Blood Pressure Blood Pressure Mean Blood Pressure Location Blood Pressure Position O2 Sat by Pulse Oximetry Oxygen Delivery Method Room Air Room Air Telemetry Strip Reading Lab Results Lab Results: Lab Results: Last 24 Hours 12/05/24 05:19 WBC 17.05 H RBC 4.47 L Hgb 10.1 L Hct 33.5 L MCV 74.9 L MCH 22.6 L MCHC 30.1 L RDW Coeff of Jonn 17.9 H Plt Count 317 Neutrophils % (Manual) 80.0 H Band Neutrophils % 3.0 Lymphocytes % (Manual) 6.0 L Monocytes % (Manual) 5.0 Metamyelocytes % 2.0 Myelocytes % 1.0 Reactive Lymphocytes 3.0 Anisocytosis Not Reportable Sodium 135.9 Potassium 3.34 L Chloride 102.6 Carbon Dioxide 29.5 Anion Gap 7.14 BUN 8.3 L Creatinine 0.85 Estimated GFR (MDRD) 95.00 BUN/Creatinine Ratio 9.76 Glucose 123.0 H Calcium 8.51 Total Bilirubin 0.34 AST 50.2 ALT 67.3 H Alkaline Phosphatase 90.6 Total Protein 5.33 L Albumin 2.20 L Globulin 3.13 Albumin/Globulin Ratio 0.70 Additional Comments Additional Comments: I have independently reviewed and interpreted the labs/EKGs/imaging ordered during this hospital stay. I have reviewed outside records that are available in our EMR that pertain to medical stay including imaging/notes/labs from previous visits. Active Medications Active Medications: Medications Generic Name Dose Route Start Last Admin Trade Name Gamalielq PRN Reason Stop Dose Admin Acetaminophen 650 mg 12/03/24 20:08 Acetaminophen 325 Mg Tablet PO Q4H PRN Mild Pain Amitriptyline HCl 50 mg 12/03/24 23:00 12/04/24 21:15 Amitriptyline Hcl 25 Mg Tablet PO 50 mg BEDTIME YA Administration Ascorbic Acid 1,000 mg 12/04/24 09:00 12/05/24 09:05 Ascorbic Acid 500 Mg Tablet PO 1,000 mg BID YA Administration Baclofen 40 mg 12/03/24 23:00 12/05/24 09:06 Baclofen 10 Mg Tablet PO 40 mg TID YA Administration CEFTRIAXONE/D5W 1 GM PREMIX 1 gm in 50 mls @ 100 mls/hr 12/04/24 21:00 12/04/24 21:17 Rocephin 1 Gm/50 Ml D5w IV 12/07/24 00:15 100 mls/hr BEDTIME YA Administration Folic Acid 1 mg/ Sodium 50.2 mls @ 100 mls/hr 12/04/24 21:00 12/04/24 23:13 Chloride IV 100 mls/hr BEDTIME YA Administration Thiamine HCl 100 mg/ Sodium 51 mls @ 100 mls/hr 12/04/24 21:00 12/04/24 22:21 Chloride IV 100 mls/hr BEDTIME YA Administration VANCOMYCIN/WATER FOR INJ (PEG) 1.5 gm in 300 mls @ 200 mls/hr 12/05/24 09:30 12/05/24 10:30 Vancomycin 1.5 Gram/300 Ml Premix IV 12/08/24 09:29 200 mls/hr Q12HR YA Administration Pantoprazole Sodium 40 mg 12/04/24 09:00 12/05/24 05:10 Pantoprazole Sodium 40 Mg Tablet. PO 40 mg QDAC2 YA Administration Plan Plan: 1. Hyponatremia, severe in setting of polydipsia - Resolved, osmolalities or dered, likely due to his alcohol use 2. UTI due to e coli - urine culture grew e coli sensitive to rocephin, cont rocephin 1G Q24H 3. Stage 3 Pressure Ulcer to L hip - concern for infection due to purulent drainage, wound culture pending, continue previous wound care orders, goes to [facility] for wound care. Vanc added today. 4. ETOH Abuse - out of window for withdrawal, no s/sx, folic acid and thiamine ordered 5. Hypokalemia - mild, replacement given 6. Anxiety/Depression - continue home medications DVT Prophylaxis: Lovenox Dispo: Possible discharge tomorrow. Case management working on home health issues. Awaiting wound culture. Review Statement Review Statement: I have personally discussed and reviewed the patient's visit/currently labs/imaging/decision making with Dr. Rizzo, my supervising attending. Greater that 50 minutes spent with patient, 50% of the time spent with this patient was devoted to counseling and coordination of care.
[2024-12-05] MEDS: LOVENOX SUBCUT SCH (15:00)
[2024-12-05 22:15] VITALS: RESP 18
[2024-12-06 05:37] LABS: HEMATOCRIT 31.3 % (42.0-52.0); HEMOGLOBIN 9.5 g/dl (14.0-18.0); MEAN CORPUSCULAR HEMOGLOBIN 22.5 pg (27.0-31.0); MEAN CORPUSCULAR HGB CONC 30.4 (31.8-35.4); MEAN CORPUSCULAR VOLUME 74.2 fl (80.0-94.0); PLATELET COUNT 333 10^3/uL (140-440); RDW COEFFICIENT OF VARIATION 18.1 % (11.6-14.8); RED BLOOD COUNT 4.22 10^6/ul (4.70-6.10); WHITE BLOOD COUNT 15.71 K/ul (4.2-10.2)
[2024-12-06 05:50] LABS: ALANINE AMINOTRANSFERASE 76.1 U/L (0-50); ALBUMIN 2.05 g/dL (3.5-5.0); ALKALINE PHOSPHATASE 85.9 U/L (38-126); ASPARTATE AMINO TRANSFERASE 67.1 U/L (17-59); BILIRUBIN,TOTAL 0.19 mg/dL (0.2-1.3); BLOOD UREA NITROGEN 8.8 mg/dL (9-20); CALCIUM 8.01 mg/dL (8.4-10.2); CARBON DIOXIDE 28.2 mmol/L (22-30.0); CREATININE 0.81 mg/dL (0.60-1.10); GLUCOSE 112.1 mg/dL (74-106); POTASSIUM 3.23 mmol/L (3.5-5.1); SODIUM 134.3 mmol/L (134.5-145); TOTAL PROTEIN 5.07 g/dL (6.3-8.2)
[2024-12-06 06:13] LABS: ANISOCYTOSIS OCCASIONAL (NOT PRESENT); POIKILOCYTOSIS OCCASIONAL (NOT PRESENT)
[2024-12-06 11:11] LABS: SERUM OSMOLALITY 257 mOsmol/kg (275-295)
[2024-12-06] MEDS: K-DUR ONE (13:54)
[2024-12-06] MEDS: FOLIC ACID ONE (13:55)
[2024-12-06] MEDS: CEFPODOXIME PROXETIL PO SCH (14:19)
--- NOTE | 2024-12-06 14:24 | DCSUM ---
Admission Date Admission Date: 12/03/24 Discharge Date Discharge Date: 12/06/24 Admission Diagnosis Admission Diagnosis: 1. Hyponatremia, severe 2. UTI 3. Stage 3 pressure ulcer to left hip Discharge Diagnosis Discharge Diagnosis: 1. Hyponatremia, severe - Resolved 2. UTI due to e coli 3. Stage 3 Pressure Ulcer to L hip growing strep dysgalac 4. ETOH Abuse 5. Hypokalemia - replaced 6. Anxiety/Depression Hospital Provider Hospital Provider: JOSE MIGUEL FINCH PA-C, [facility] Summary of History and Physical Summary of History and Physical: 49 yo male with pmh of paraplegia, chronic suprapubic cottrell, ETOH abuse, and pressure ulcers presented to the ER with concerns for dehydration. Patient states he stopped drinking alcohol 1 week ago and since then he has been drinking excessive amounts of water and his mouth feels dry. No s/sx of withdrawal present. Denies any other symptoms. Found to have a sodium of 127.3. Mild Leukocytosis. Admitted to med/surg observation. Overnight, staffing operations manager reported fever, cloudy urine, and purulent drainage from wound to L hip wound. UA collected with concern for UTI and rocephin was started. Wound culture obtained. Hospital Course Subjective: Patient's hyponatremia resolved with fluids. Serum and urine osmols pending. Suspect polydipsia and hx of alcohol use contributing. Patient was started on rocephin for UTI and wound, vancomycin added when wound culture showed gram positive cocci. Urine culture grew E. coli. Patient's wound culture grew strep dysgalac. Initially the plan was to discharge on cefpodoxime, however it was going to be $50 and the patient cannot afford that. Spoke with pharmacy regarding alternatives that would cover his urine and wound culture both and it was decided upon Augmentin 875 twice daily for 7 days. This was $25 which thankfully the [facility] was able to cover for the patient. Labs overall are baseline, white blood cell count is trending down. Patient has not had a fever in last 24 hours or greater. He is at his baseline. Of note he has run into some issues with his insurance. He does not have any prescription coverage. His home health agency will not take his insurance. He has a wound VAC that initially was not on when he presented to our facility but he was able to have it brought in on Thursday night to be put back on. However he states that home health is not able to come and do his second wound VAC change throughout the week as they normally do. He states that this will be resolved in December when his insurance changes again. We discussed with his wound care clinic ([facility]) this problem. A nurse reached out to his provider Denise Mobley for recommendations. Taryn returned my call stating to leave the wound VAC on for now until , take it off and then do wet-to-dry dressings and change daily or as needed until Thursday. They can discuss maybe more absorptive dressings then to get him through until his insurance will cover home health again. Patient is agreeable to this, he is used to doing dressings at home and states that he has supplies. Some supplies were sent with him as we ll. He has an appointment scheduled for December 12 with wound care. We will also fax over his culture results. Appearance: No Apparent Distress and Alert HEENT: MMM CVS: Other (RRR) Abdomen: Soft, Non-Tender and No Distention Respiratory: No Accessory Muscle Use Extremities: No Edema Additional Findings: Left hip = Stage 3 pressure ulcer with tunneling to L buttock, drainage present which patient states is unchanged from usual, healing edges, wound bed looks good overall. Vital Signs: Most Recent Vital Signs Temperature 96.6 F L 12/06/24 10:00 Temperature Source Temporal Artery Scan 12/06/24 10:00 Temperature Source Infrared 12/03/24 15:52 Pulse Rate 96 12/06/24 10:00 Respiratory Rate 18 12/06/24 10:00 Blood Pressure 100/64 12/06/24 10:00 Blood Pressure Mean 76 12/06/24 10:00 Blood Pressure Left Arm 139/67 12/03/24 21:49 Blood Pressure Location Left Arm 12/06/24 10:00 Blood Pressure Position Supine 12/06/24 10:00 O2 Sat by Pulse Oximetry 96 12/06/24 10:00 Oxygen Delivery Method Room Air 12/06/24 10:00 Height 6 ft 12/03/24 21:49 Weight 89.5 kg 12/03/24 21:49 Telemetry Type Remote Telemetry 12/05/24 19:00 Telemetry Monitoring Continues 12/04/24 13:00 Telemetry Heart Rate 90 12/04/24 13:00 EKG [place] Interval 0.09 L 02/16/25 13:00 EKG QRS Interval 0.09 12/04/24 13:00 Telemetry Strip Reading REFUSED 12/06/24 01:00 Lab Results Last 24 Hours: 12/06/24 12/03/24 05:31 16:30 WBC 15.71 H RBC 4.22 L Hgb 9.5 L Hct 31.3 L MCV 74.2 L MCH 22.5 L MCHC 30.4 L RDW Coeff of Jonn 18.1 H Plt Count 333 Neutrophils % (Manual) 70.0 Band Neutrophils % 4.0 Lymphocytes % (Manual) 5.0 L Monocytes % (Manual) 9.0 Eosinophils % (Manual) 1.0 Metamyelocytes % 2.0 Myelocytes % 2.0 H Reactive Lymphocytes 7.0 H Poikilocytosis Occasional Anisocytosis Occasional Sodium 134.3 L Potassium 3.23 L Chloride 103.0 Carbon Dioxide 28.2 Anion Gap 6.33 BUN 8.8 L Creatinine 0.81 Estimated GFR (MDRD) 100.00 BUN/Creatinine Ratio 10.86 Glucose 112.1 H Serum Osmolality 257 L Calcium 8.01 L Total Bilirubin 0.19 L AST 67.1 H ALT 76.1 H Alkaline Phosphatase 85.9 Total Protein 5.07 L Albumin 2.05 L Globulin 3.02 Albumin/Globulin Ratio 0.67 Discharge Instructions Discharge Planning: Discharge Planning > [address] Rhonda Rzizo. Discharge Medications: Medications at Discharge (Home Meds & RX) pantoprazole 40 mg tablet,delayed release (Protonix) 40 mg PO DAILY 08/03/14 baclofen 20 mg tablet 40 mg PO TID #120 tab-caps 12/18/14 ibuprofen 200 mg tablet 600 mg PO BID PRN PAIN /FEVER 12/18/14 ascorbic acid (vitamin C) 1,000 mg tablet (Vitamin C) 1,000 mg PO BID 06/06/18 amitriptyline 50 mg tablet 50 mg PO QHS #30 tabs 08/26/23 amoxicillin 875 mg-potassium clavulanate 125 mg tablet 1 tab PO BID #14 tabs 12/06/24 Discharge Plan Discharge Discharge Orders: Discharge Patient (ONCE); Ordered 12/06/24 Ordered By: JOSE MIGUEL FINCH Activity Restrictions/Additional Instructions: DISCHARGE TO HOME DX: UTI, WOUND INFECTION PHARMACY: [facility]TIBIOT[facility] PER YOUR WOUND CARE OFFICE, LEAVE WOUND VAC IN PLACE UNTIL THURSDAY. THEN REMOVE AND USE WET TO DRY DRESSINGS DAILY OR MORE OFTEN FOLLOW UP WITH WOUND CARE ON THURSDAY SCHEDULED Patient Disposition: HOME SELF-CARE Prescriptions: New amoxicillin-pot clavulanate 875-125 mg tablet 1 tab PO BID Qty: 14 0RF Continued pantoprazole [Protonix] 40 MG tablet,delayed release (DR/EC) 40 mg PO DAILY ibuprofen 200 MG tablet 600 mg PO BID PRN (Reason: PAIN /FEVER) baclofen 20 MG tablet 40 mg PO TID Qty: 120 ascorbic acid (vitamin C) [Vitamin C] 1,000 MG tablet 1,000 mg PO BID amitriptyline 50 mg tablet 50 mg PO QHS Qty: 30 1RF Discontinued lamotrigine [Lamictal] 25 mg tablet See Rx Instructions .ROUTE .COMPLEX Qty: 60 0RF Rx Instructions: 25mg PO QD x 14 days, then 50mg PO QD Did you review [place] [employer] for ALL controlled substances?: Not Applicable Discussed opioids are addictive and Narcan is available by prescription or from pharmacy.: No Condition: Good Referrals: DENISE MOBLEY [REFERRING] - 12/12/24 10:30 am (wound care)
[2024-12-06 15:08] VITALS: BP 101/77; PULSE 92; TEMP 97.3
[2024-12-07 03:08] LABS: OSMOLALITY,URINE 464 mOsmol/kg (.)
== END 2024-12-06 16:10 | disposition home or self-care (01) | DRG 640 ==
LOC: MEDSURG B 15:49 → ED 15:49 → MEDSURG B 21:50
PROVIDERS: ADMIT Hospitalist; ATTEND Physician Assistant